=== PATIENT | female | born 1990 | race American Indian/Alaskan Native ===

== ENCOUNTER 2016-12-06 12:11 | Emergency (ER) | payer MEDICAID, OTHER ==
[2016-12-06 12:32] VITALS: TEMP 98.7
[2016-12-06 12:35] VITALS: BP 118/82; PULSE 98; RESP 18; O2SAT 100
--- NOTE | 2016-12-06 12:52 | C.PDOC ---
History Of Present Illness 26 y/o female presents to the ED c/o ring worm on the right arm and abdominal region. The patient states that the area is very itchy. The patient notes that her daughter has ring worm as well. The patient denies dizziness, headaches, vomiting, fever, and chills. Time Seen by Provider: 12/06/16 12:38 Chief Complaint (Nursing): Abnormal Skin Integrity History Per: Patient History/Exam Limitations: no limitations Onset/Duration Of Symptoms: Days Current Symptoms Are (Timing): Still Present Additional History Per: Patient Past Medical History Reviewed: Historical Data, Nursing Documentation, Vital Signs Vital Signs: Last Vital Signs Temp 98.7 F 12/06/16 12:32 Pulse 98 H 12/06/16 12:32 Resp 18 12/06/16 12:32 BP 118/82 12/06/16 12:32 Pulse Ox 100 12/06/16 14:43 - Medical History PMH: No Chronic Diseases Surgical History: No Surg Hx Family History: States: Unknown Family Hx - Social History Hx Alcohol Use: Yes Hx Substance Use: No - Immunization History Hx Tetanus Toxoid Vaccination: No Hx Influenza Vaccination: No Hx Pneumococcal Vaccination: No Review Of Systems Except As Marked, All Systems Reviewed And Found Negative. Constitutional: Negative for: Fever, Chills Gastrointestinal: Positive for: Other (lesions on the abdominal region ). Negative for: Nausea, Vomiting Skin: Positive for: Lesions (small on the right arm ). Negative for: Rash, Bruising Physical Exam - Physical Exam Appears: Non-toxic, No Acute Distress Skin: Normal Color, Warm, Rash, Other (lesions on the right arm and abdominal region , appears to be very scaly .) Head: Atraumatic Oral Mucosa: Moist Extremity: Normal ROM Neurological/Psych: Oriented x3, Normal Speech, Normal Cognition ED Course And Treatment O2 Sat by Pulse Oximetry: 100 (RA) Progress Note: The patient has improved and has been resting comfortably. Upon reevaluation, the patient is not aferbile. The patient has been advised to have a follow up with PMD for further evaluation. Disposition - Disposition Referrals: [facility] [Outside] [facility] [Outside] Disposition: HOME/ ROUTINE Disposition Time: 12:51 Condition: STABLE Additional Instructions: Follow up with your doctor or in clinic. Call the [facility] if you need to find a doctor. Prescriptions: Butenafine HCl [Lotrimin Ultra] 1 gm TP TID #12 gm Instructions: Tinea Corporis (ED) Forms: [facility] (Sinhala) - Clinical Impression Clinical Impression: Tinea corporis - Scribe Statement The provider has reviewed the documentation as recorded by the Scribe Nirali Lux All medical record entries made by the Eliuibe were at my direction and personally dictated by me. I have reviewed the chart and agree that the record accurately reflects my personal performance of the history, physical exam, medical decision making, and the department course for this patient. I have also personally directed, reviewed, and agree with the discharge instructions and disposition.
== END 2016-12-06 13:07 | disposition home or self-care (01) ==
LOC: C.ER 12:11
DX: B35.4 Tinea corporis (principal)

== ENCOUNTER 2016-12-09 09:57 | Inpatient (IN) | payer MEDICAID, OTHER ==
--- NOTE | 2016-12-09 11:04 | C.PDOC ---
History Of Present Illness 26 year old female, whose past medical history includes Asthma, presents to the ED for psychiatric evaluation after she verbalized suicidal ideation. Patient states she has been feeling depressed and admits to experiencing auditory hallucinations. Pt notes " I just want to get better." No HI. Time Seen by Provider: 12/09/16 10:33 Chief Complaint (Nursing): Psychiatric Evaluation History Per: Patient History/Exam Limitations: no limitations Onset/Duration Of Symptoms: Hrs Current Symptoms Are (Timing): Still Present Suicide/Self Injury Attempted (Context): None Associated Symptoms: Depression, Suicidal Thoughts. denies: Suicidal Plan Involuntary Hold By: None Recent travel outside of the [place]: No Additional History Per: Patient Past Medical History Reviewed: Historical Data, Nursing Documentation, Vital Signs Vital Signs: Last Vital Signs Temp 97.0 F L 12/09/16 13:10 Pulse 107 H 12/09/16 13:10 Resp 16 12/09/16 13:47 BP 141/90 12/09/16 13:10 Pulse Ox 97 12/09/16 13:10 - Medical History PMH: Bipolar Disorder Surgical History: No Surg Hx Family History: States: Unknown Family Hx - Social History Hx Alcohol Use: Yes Hx Substance Use: Yes - Immunization History Hx Tetanus Toxoid Vaccination: No Hx Influenza Vaccination: No Hx Pneumococcal Vaccination: No Review Of Systems Psych: Positive for: Depression, Suicidal ideation. Negative for: Other ( homicidal ideation ) Physical Exam - Physical Exam Appears: Non-toxic, No Acute Distress Skin: Normal Color, Warm, Dry Head: Atraumatic, Normacephalic Eye(s): bilateral: Normal Inspection, EOMI Nose: Normal Oral Mucosa: Moist Neck: Normal ROM, Supple Chest: Symmetrical, No Deformity, No Tenderness Cardiovascular: Rhythm Regular Respiratory: Normal Breath Sounds, No Rales, No Rhonchi, No Wheezing Gastrointestinal/Abdominal: Normal Exam, Soft, No Tenderness Extremity: Normal ROM, Capillary Refill (less than 2 seconds ) Neurological/Psych: Oriented x3, No Normal Speech (delayed ), Normal Cognition Gait: Steady ED Course And Treatment - Laboratory Results Result Diagrams: 12/09/16 11:51 12/09/16 11:51 O2 Sat by Pulse Oximetry: 98 (on RA) Pulse Ox Interpretation: Normal Progress Note: Bloodwork and urinalysis ordered and reviewed. Patient underwent evaluation by toll test worker. Patient will be admitted to Dr. Mckeon under diagnosis of Bipolar Disorder and Schizophrenia. Disposition - Disposition Disposition: HOSPITALIZED Disposition Time: 13:00 Condition: STABLE - Clinical Impression Clinical Impression: Depression, Bipolar disorder - PA / REAL PROPERTY APPRAISER / Resident Statement MD/DO has reviewed & agrees with the documentation as recorded. - Scribe Statement The provider has reviewed the documentation as recorded by the Scribe (Berenice Thompson) All medical record entries made by the Scribe were at my direction and personally dictated by me. I have reviewed the chart and agree that the record accurately reflects my personal performance of the history, physical exam, medical decision making, and the department course for this patient. I have also personally directed, reviewed, and agree with the discharge instructions and disposition.
[2016-12-09 11:55] LABS: BASO # 0.1 K/uL (0.0-0.2); BASO % 0.9 % (0.0-2.0); EOS # 0.1 K/uL (0.0-0.7); HEMATOCRIT 42.2 % (34.0-47.0); LYMPH # 1.6 K/uL (1.0-4.3); LYMPH % 21.9 % (20.0-40.0); MEAN CELL VOLUME 86.9 fL (81.0-99.0); MEAN CORPUSCULAR HEMOGLOBIN 30.5 pg (27.0-31.0); MEAN PLATELET VOLUME 9.4 fL (7.2-11.7); MONO # 0.4 K/uL (0.0-0.8); MONO % 5.7 % (0.0-10.0); NRBC % 0.5 % (0.0-2.0); RED CELL DISTRIBUTION WIDTH 12.2 % (11.5-14.5); WHITE BLOOD COUNT 7.3 K/uL (4.8-10.8)
[2016-12-09 12:07] LABS: CHLORIDE 102 mmol/L (98-107); POTASSIUM 4.1 mmol/L (3.6-5.2); RBC URINE 7 /hpf (0-3); SODIUM 138 mmol/L (132-148); URINE BACTERIA OCC (<OCC); URINE BILIRUBIN NEGATIVE (NEGATIVE); URINE BLOOD 1+ (NEGATIVE); URINE COLOR Yellow (YELLOW); URINE GLUCOSE (UA) NORMAL (Normal); URINE KETONE 1+ mg/dL (NEGATIVE); URINE LEUKOCYTE ESTERASE NEG Leu/uL (Negative); URINE PROTEIN 2+ mg/dL (NEGATIVE); URINE UROBILINOGEN NORMAL mg/dL (0.2-1.0); WBC URINE 4 /hpf (0-5)
[2016-12-09 12:09] LABS: GFR AFRICAN-AMERICAN > 60
[2016-12-09 12:10] LABS: ALB/GLOB RATIO 1.3 (1.0-2.1); ALKALINE PHOSPHATASE 90 U/L (38-126); ALT/SGPT 29 U/L (9-52); AST/SGOT 26 U/L (14-36); BILIRUBIN,TOTAL 0.8 mg/dL (0.2-1.3); BLOOD UREA NITROGEN 13 mg/dL (7-17); CALCIUM 10.2 mg/dl (8.6-10.4); CARBON DIOXIDE 21 mmol/L (22-30); GLUCOSE,RANDOM 96 mg/dL (65-105); TOTAL PROTEIN 8.8 g/dL (6.3-8.3)
[2016-12-09 12:11] LABS: ALCOHOL SERUM < 10 mg/dl (0-10)
--- NOTE | 2016-12-09 13:40 | PCM.BM ---
<Mary Jane Gaviria - Last Filed: 12/09/16 13:38> Treatment Plan Problems - Problems identified on initial assessmt Depression Date Initiated: 12/09/16 Time Initiated: 13:38 Assessment reference: NA Status: Active Auditory Hallucination Date Initiated: 12/09/16 Time Initiated: 13:39 Assessment reference: NA Status: Active Treatment assets and liabiliti Patient Assests: adapts well, cooperative, ADL independent, physically healthy, negotiates basic needs, cognitively intact Patient Liabilities: live alone (lives with mother), financial problems, poor support system, substance abuse (THC) - Milieu Protocol Maintain good personal hygiene: daily Encourage regular showers, daily Remind patient to perform daily oral care, other Assist patient to perform ADL's (Self) Conduct patient checks and document Observation sheet: Q15 minutes (Safety) Maintain personal safety: every shift Educate patient to report safety concerns to staff, every shift Monitor environment for contraband/sharps Medication safety: Monitor for expected outcome, potential side effects: every shift, Assess barriers to learning: every shift, Assess readiness for medication education: every shift <Mary Lundberg - Last Filed: 12/10/16 11:48> Family Contact Family involvement: Family/SO is involved Family contact: Patient agrees to contact Family contact name: Stacey Vega-mother Family contacted how many times per week?: 1 - Goals for Treatment Patient goals for treatment: "I need help with my medical program." Discharge/Continuing Care - Education Needs Education Needs: Patient Medication, Patient Coping Skills - Discharge Discharge Criteria: Tolerates medication w/o severe side effects, Reduction of target symptoms Discharge to:: Home, With Family - Treatment Team Participation Discussed with Family/SO: Yes Was Patient/Family/SO present at Treatment Team Meeting: Yes <Ryan Mckeon - Last Filed: 12/10/16 11:55> - Diagnosis (1) Bipolar I disorder, single manic episode, severe with psychotic features Status: Acute Interventions: Assess/adjust medications daily and/or as needed SEE patient on him individual basis 7x/week to assess status of hallucinations. Discuss risks, benefits, side effects and alternatives of medications. 12/10/16 11:55 (2) Cannabis use disorder, severe, dependence Status: Acute Interventions: Assess 7x/week regarding severity of withdrawal Educated regarding risks, benefits, side effects and alternatives of medications Used motivational interview for abstinence Used CBT for relapse prevention Medication management for withdrawal symptoms Encouraged medication assisted treatment 12/10/16 11:54
[2016-12-10] MEDS ORDERED: DiphenhydrAMINE 50 mg/ml Inj ONE (12:06)
[2016-12-10] MEDS ORDERED: DiphenhydrAMINE 50 mg/ml Inj IM STA (12:09)
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
--- NOTE | 2016-12-11 14:45 | PCM.PYCHPN ---
Psychiatric Progress Note - Psychiatric Progress Note Patient seen today, length of contact: 15 minutes Patient Chief Complaint: I feel little better. Problems Identified/Issues Discussed: Patient seen. Chart reviewed. Case discussed with the staff. Issues related to illness and treatment were discussed with the patient. Reported compliant with treatment with no adverse affects. Tolerating treatment very well. Feeling little better with the treatment. Mood was still labile. At the time of evaluation, patient was awake alert oriented 3, had no delusions , no auditory or visual hallucinations, no suicidal ideations or homicidal ideations. Medical Problems: Asthma Diagnostic Results: Reviewed DSM 5 Symptoms Update: Improving with treatment Medication Change: No Medical Record Reviewed: Yes Mental Status Examination - Cognitive Function Orientation: Person, Place, Situation, Time Memory: Intact Attention: WNL Concentration: WNL Association: WNL Fund of Knowledge: WNL - Mood Mood: Depressed, Other (Angry) - Affect Affect: Flat - Speech Speech: Pressured (At times) - Formal Thought Process Formal Thought Process: Delusions (Somatic delusions), Paranoia - Suicidal Ideation Suicidal Ideation: No - Homicidal Ideation Homicidal Ideation: No Goal/Treatment Plan - Goal/Treatment Plan Need for Continued Stay: Remain at risks for inpatient hospitalization, Discharge may exacerbated symptoms, Severe functional impairment Progress Toward Problem(s) and Goals/Treatment Plan: Patient education Supportive therapy Continue treatment as before Estimated Date of D/C: 12/16/16 - Smoking Cessation Smoking Cessation Initiated: No
[2016-12-12] MEDS ORDERED: Pneumococcal 23-Valent Vaccine IM ONE (10:00)
[2016-12-12] MEDS ORDERED: Influenza Vaccine 60 mcg/0.5 mL SYR (4YR UP) IM ONE (10:00)
--- NOTE | 2016-12-12 12:41 | PCM.PYCHPN ---
Psychiatric Progress Note - Psychiatric Progress Note Patient seen today, length of contact: 15 minutes Patient Chief Complaint: I feel little better. Problems Identified/Issues Discussed: Patient seen. Chart reviewed. Case discussed with the staff. Issues related to illness and treatment were discussed with the patient. Reported compliant with treatment with no adverse affects. Tolerating treatment very well. Feeling little better with the treatment. Mood was still labile. Will start ciprofloxacin for UTI. At the time of evaluation, patient was awake alert oriented 3, had no delusions , no auditory or visual hallucinations, no suicidal ideations or homicidal ideations. Medical Problems: Asthma Diagnostic Results: Reviewed DSM 5 Symptoms Update: improving with treatment Medication Change: Yes (started ciprofloxacin) Medical Record Reviewed: Yes Mental Status Examination - Cognitive Function Orientation: Person, Place, Situation, Time Memory: Intact Attention: WNL Concentration: WNL Association: WNL Fund of Knowledge: WN Decription of patient's judgement and insights: fair - Mood Mood: Depressed, Other (Angry) - Affect Affect: Flat - Speech Speech: Appropriate - Suicidal Ideation Suicidal Ideation: No - Homicidal Ideation Homicidal Ideation: No Goal/Treatment Plan - Goal/Treatment Plan Need for Continued Stay: Remain at risks for inpatient hospitalization, Discharge may exacerbated symptoms, Severe functional impairment Progress Toward Problem(s) and Goals/Treatment Plan: Patient education Supportive therapy Will start ciprofloxacin 500 mg twice a day for UTI Continue rest of the treatment as before Estimated Date of D/C: 12/16/16 - Smoking Cessation Smoking Cessation Initiated: No
--- NOTE | 2016-12-13 12:27 | PCM.PYCHPN ---
Psychiatric Progress Note - Psychiatric Progress Note Patient seen today, length of contact: 15 minutes Patient Chief Complaint: I feel little better. Problems Identified/Issues Discussed: Patient seen. Chart reviewed. Case discussed with the staff. Issues related to illness and treatment were discussed with the patient. Reported compliant with treatment with no adverse affects. Tolerating treatment very well. Feeling better with the treatment. Mood was still labile. Staff reported that patient's parents were on the unit yesterday. After their visit, patient became very angry, need to call security. Patient got IM Haldol and Ativan to calm her down. Today patient reported that she made a mistake that now she is calm and try not to be impulsive. At the time of evaluation, patient was awake alert oriented 3, had no delusions , no auditory or visual hallucinations, no suicidal ideations or homicidal ideations. Medical Problems: Asthma Diagnostic Results: Reviewed DSM 5 Symptoms Update: Improving with treatment Medication Change: No Medical Record Reviewed: Yes Mental Status Examination - Cognitive Function Orientation: Person, Place, Situation, Time Memory: Intact Attention: WNL Concentration: WNL Association: WNL Fund of Knowledge: [facility] Decription of patient's judgement and insights: fair - Mood Mood: Depressed - Affect Affect: Flat - Speech Speech: Appropriate - Formal Thought Process Formal Thought Process: No Impairment - Suicidal Ideation Suicidal Ideation: No - Homicidal Ideation Homicidal Ideation: No Goal/Treatment Plan - Goal/Treatment Plan Need for Continued Stay: Remain at risks for inpatient hospitalization, Discharge may exacerbated symptoms, Severe functional impairment Progress Toward Problem(s) and Goals/Treatment Plan: Patient education Supportive therapy Continue treatment as before Estimated Date of D/C: 12/16/16 - Smoking Cessation Smoking Cessation Initiated: No
--- NOTE | 2016-12-14 13:39 | PCM.PYCHPN ---
Psychiatric Progress Note - Psychiatric Progress Note Patient seen today, length of contact: 15 minutes Patient Chief Complaint: I'm feeling better. Problems Identified/Issues Discussed: Patient seen. Chart reviewed. Case discussed with the staff. Issues related to illness and treatment were discussed with the patient. Reported compliant with treatment with no adverse affects. Tolerating treatment very well. Feeling better with the treatment. Mood was still labile. Staff reported that patient refuses to take Risperdal last night. Discussed with the patient about Risperdal. Patient doesn't want to take Risperdal. Offered Seroquel. Risk and benefits of Seroquel discussed with the patient. Patient agreed. We'll start Risperdal 100 mg at bedtime. At the time of evaluation, patient was awake alert oriented 3, had no delusions , no auditory or visual hallucinations, no suicidal ideations or homicidal ideations. Medical Problems: Asthma Diagnostic Results: Reviewed DSM 5 Symptoms Update: Some improvement with treatment Medication Change: Yes (Discontinued took Risperdal. Start Seroquel) Medical Record Reviewed: Yes Mental Status Examination - Cognitive Function Orientation: Person, Place, Situation, Time Memory: Intact Attention: WNL Concentration: WNL Association: [facility] Fund of Knowledge: [facility] Decription of patient's judgement and insights: fair - Mood Mood: Depressed - Affect Affect: Flat - Speech Speech: Appropriate - Formal Thought Process Formal Thought Process: No Impairment - Suicidal Ideation Suicidal Ideation: No - Homicidal Ideation Homicidal Ideation: No Goal/Treatment Plan - Goal/Treatment Plan Need for Continued Stay: Remain at risks for inpatient hospitalization, Discharge may exacerbated symptoms, Severe functional impairment Progress Toward Problem(s) and Goals/Treatment Plan: Patient education Supportive therapy Discontinue Risperdal Start Seroquel 100 mg at bedtime Continue rest of the treatment as before Estimated Date of D/C: 12/16/16 - Smoking Cessation Smoking Cessation Initiated: No
[2016-12-14] MEDS ORDERED: Albuterol HFA 90 mcg/actuation (8 g) INH PRN (19:48)
[2016-12-15 07:23] VITALS: TEMP 98.7; O2SAT 99
--- NOTE | 2016-12-15 10:06 | PCM.PYCHPN ---
Psychiatric Progress Note - Psychiatric Progress Note Patient seen today, length of contact: 17 mins Patient Chief Complaint: "I really need to talk to you" Problems Identified/Issues Discussed: The pt is seen, chart reviewed, case discussed with staff. Pt reports that after taking her Haldol earlier that morning she feels okay and has no complaints with the medications. Pt reports that her mood is still down, but that compared to last week she is a little better. She also states that she is worried about going back out into the world because "I won't be able to go back out and function, I need more time". Pt became teary when speaking about her daughter. Pt also reports that "others need to stop talking about my situation", however, when asked about who is doing so she reports "no one its all in my head". Support given, CBT and NE used briefly No new symptoms reported, improving slowly and needs more time No SEs from medications, risks discussed. After care discussed. Pt is encouraged to speak with counselors and SW to find after care programs for her. Pt understands that being complaint with her medications is very important and would like to also speak with a therapist, she is encouraged to do so. Medication Change: Yes (Start Cogentin and Haldol ) Medical Record Reviewed: Yes Mental Status Examination - Cognitive Function Orientation: Person, Place, Situation, Time Memory: Intact Attention: Poor Concentration: WNL Association: WNL Fund of Knowledge: WNL - Mood Mood: Depressed - Affect Affect: Flat, Depressed - Speech Speech: Appropriate - Formal Thought Process Formal Thought Process: No Impairment - Suicidal Ideation Suicidal Ideation: No - Homicidal Ideation Homicidal Ideation: No Goal/Treatment Plan - Goal/Treatment Plan Need for Continued Stay: Remain at risks for inpatient hospitalization, Discharge may exacerbated symptoms, Severe functional impairment Progress Toward Problem(s) and Goals/Treatment Plan: Start: Cogentin 1mg PO BID MICHAEL Haldol 5mg PO BID MICHAEL Continue all other medications as needed. Attend groups and activities Individual therapy Psychoeducation and support Encourage compliance with meds and after care Refer to outpatient program Teach healthy lifestyle methods, i.e. diet, exercise, meditation Smoking cessation 17 mins Estimated Date of D/C: 12/16/16
--- NOTE | 2016-12-16 10:37 | PCM.PYCHPN ---
Psychiatric Progress Note - Psychiatric Progress Note Patient seen today, length of contact: 16 mins Patient Chief Complaint: "I guess I'm okay" Problems Identified/Issues Discussed: The pt is seen, chart reviewed, case discussed with staff. Pt reports she slept well last night, but is a bit agitated this morning. She states " I want to leave" but constantly changes her mind. Her mood seems the same compared to before. Support given, CBT and [place] used briefly No new symptoms reported, improving slowly and needs more time No SEs from medications, risks discussed. After care discussed. Pt reports that she will stay and continue her treatment, stating "I know this is what I need". Pt is encouraged to do so. Medication Change: No Medical Record Reviewed: Yes Mental Status Examination - Cognitive Function Orientation: Person, Place, Situation, Time Memory: Intact Attention: Poor Concentration: Poor Association: WNL Fund of Knowledge: Poor - Mood Mood: Depressed, Anxious - Affect Affect: Flat, Depressed - Speech Speech: Appropriate - Formal Thought Process Formal Thought Process: No Impairment - Suicidal Ideation Suicidal Ideation: No - Homicidal Ideation Homicidal Ideation: No Goal/Treatment Plan - Goal/Treatment Plan Need for Continued Stay: Remain at risks for inpatient hospitalization, Discharge may exacerbated symptoms, Severe functional impairment Progress Toward Problem(s) and Goals/Treatment Plan: Continue all other medications as needed. Attend groups and activities Individual therapy Psychoeducation and support Encourage compliance with meds and after care Refer to outpatient program Teach healthy lifestyle methods, i.e. diet, exercise, meditation Smoking cessation Estimated Date of D/C: 12/16/16
[2016-12-17 07:19] VITALS: BP 102/68; PULSE 101; RESP 19
[2016-12-17] MEDS ORDERED: Haloperidol Decanoate 100 mg/ml Inj IM ONE (09:51)
--- NOTE | 2016-12-17 10:35 | PCM.PYCHDC ---
Mental Status Examination - Mental Status Examination Orientation: Person, Place, Situation, Time Memory: Intact Mood: Neutral Affect: Constricted Speech: Soft Attention: WNL Concentration: WNL Association: WNL Fund of Knowledge: WNL Formal Thought Process: No Impairment Description of patient's judgement and insight: good, fair Psychotic Thoughts and Behaviors: denies any AVH Suicidal Ideation: No Current Homicidal Ideation?: No Discharge Summary - Discharge Note Reason for Hospitalization: Patient is a 26 years old, single, unemployed, -Indian female with history of bipolar 1 disorder with psychotic features. Reported noncompliant with treatment since May 2016. Was taking Risperdal and lithium. Patient reported she was getting these medications from [place] where she was living and recently moved back to [place]. Patient reported feeling depressed with decreased sleep and feeling rested, increased energy, no change in appetite or weight change. Reported suicidal ideations at times without any plan. No homicidal ideations. History of one previous suicidal attempt in the early part of 2016 while she was admitted to the hospital. Patient refused to provide details. History of 3 previous inpatient psychiatric admissions. Patient reported history of seeing things which were not there. Also thinks someone is after her. Patient reported she was studying more and was not taking care of for 3 years old daughter. His family is taking care of her daughter. During evaluation patient appeared suspicious for many questions. Patient reported she didn't menstruate for last 3 years because of implant she had. Recently she started spotting. Patient demanded to be seen by medical and ANESTHESIOLOGIST/PHYSICIAN right on the spot. Education provided that will call medical. Patient became very agitated and aggressive. Needed to call security and IM medications including Haldol, Ativan and Benadryl. Also patient was in seclusion. Cannabis use. Patient started using cannabis at 19 years of age, one plan daily. Increased gradually. Was guarded about amount used now. Last use reported 2 days ago. Also drinks alcohol 2 times per week. One glass of wine each time. Last use reported 5 days ago. Consultations:: List each consultation separately and include: 1. Reason for request. 2. Findings. 3. Follow-up Summary of Hospital Course include:: 1. Description of specific treatment plan utilized for patients during their course of treatmen. 2. Summarize the time- course for resolution of acute symptoms and/or regressed behaviors. 3. Describe issues identified and worked on during hospitalization. 4. Describe medication utilized. 5. Describe medical problems identified and treated. 6. Reassessment of suicide risk - Final Diagnosis (DSM 5) Condition upon Discharge: STABLE DSM 5: Bipolar 1 disorder depressed with psychotic features Cannabis use disorder severe Disposition: HOME/ ROUTINE Follow-up Treatment Plan: Continue all other medications as needed. Attend groups and activities Individual therapy Psychoeducation and support Encourage compliance with meds and after care Refer to outpatient program Teach healthy lifestyle methods, i.e. diet, exercise, meditation Smoking cessation Prescriptions/Medication Reconciliation: Benztropine [Cogentin] 1 mg PO BID #60 tab Haloperidol [Haldol] 5 mg PO BID #60 tab [place] Carbonate [[place] Carbonate 300MG] 300 mg PO TID #90 cap QUEtiapine [Seroquel] 100 mg PO HS #30 tab
== END 2016-12-17 11:25 | disposition home or self-care (01) | DRG 430 ==
LOC: C.ER 09:57 → C.5E 12:37
PROC: GZ3ZZZZ Medication Management (ICD-10-PCS; principal; 2016-12-09)
PROC: GZHZZZZ Group Psychotherapy (ICD-10-PCS; 2016-12-09)
PROC: GZ56ZZZ Individual Psychotherapy, Supportive (ICD-10-PCS; 2016-12-09)
PROC: HZ59ZZZ Individual Psychotherapy for Substance Abuse Treatment, Supportive (ICD-10-PCS; 2016-12-09)
DX: F31.5 Bipolar disorder, current episode depressed, severe, with psychotic features (principal); R45.851 Suicidal ideations; F12.20 Cannabis dependence, uncomplicated; N39.0 Urinary tract infection, site not specified; J45.909 Unspecified asthma, uncomplicated; Z91.19 Patient's noncompliance with other medical treatment and regimen; Z81.8 Family history of other mental and behavioral disorders; Z91.410 Personal history of adult physical and sexual abuse

== ENCOUNTER 2017-02-02 17:32 | Inpatient (IN) | payer MEDICAID ==
[2017-02-02] MEDS ORDERED: Lactated Ringer's 1,000 ML IVB ONE (18:02)
[2017-02-02 18:46] LABS: BASO # 0.1 K/uL (0.0-0.2); BASO % 0.6 % (0.0-2.0); EOS # 0.4 K/uL (0.0-0.7); EOS % 3.7 % (0.0-4.0); HEMATOCRIT 36.6 % (34.0-47.0); LYMPH # 1.6 K/uL (1.0-4.3); LYMPH % 15.7 % (20.0-40.0); MEAN CELL VOLUME 87.6 fL (81.0-99.0); MEAN CORPUSCULAR HEMOGLOBIN 29.3 pg (27.0-31.0); MEAN CORPUSCULAR HGB CONC 33.4 g/dL (33.0-37.0); MEAN PLATELET VOLUME 8.9 fL (7.2-11.7); MONO # 0.8 K/uL (0.0-0.8); MONO % 7.4 % (0.0-10.0); RED CELL DISTRIBUTION WIDTH 12.6 % (11.5-14.5); WHITE BLOOD COUNT 10.4 K/uL (4.8-10.8)
[2017-02-02 18:48] LABS: ALB/GLOB RATIO 1.5 (1.0-2.1); ALCOHOL SERUM < 10 mg/dl (0-10); ALKALINE PHOSPHATASE 71 U/L (38-126); ALT/SGPT 29 U/L (9-52); AST/SGOT 17 U/L (14-36); BILIRUBIN,TOTAL 0.5 mg/dL (0.2-1.3); BLOOD UREA NITROGEN 8 mg/dL (7-17); CALCIUM 8.9 mg/dl (8.6-10.4); CARBON DIOXIDE 27 mmol/L (22-30); CHLORIDE 106 mmol/L (98-107); GFR AFRICAN-AMERICAN > 60; GLUCOSE,RANDOM 99 mg/dL (65-105); POTASSIUM 3.6 mmol/L (3.6-5.2); SODIUM 140 mmol/L (132-148); TOTAL PROTEIN 6.7 g/dL (6.3-8.3)
[2017-02-02 19:05] LABS: RBC URINE 1 /hpf (0-3); URINE BACTERIA OCC (<OCC); URINE BILIRUBIN NEGATIVE (NEGATIVE); URINE BLOOD NEGATIVE (NEGATIVE); URINE COLOR Yellow (YELLOW); URINE GLUCOSE (UA) NORMAL (Normal); URINE KETONE NEGATIVE (NEGATIVE); URINE LEUKOCYTE ESTERASE TRACE Leu/uL (Negative); URINE PROTEIN 2+ mg/dL (NEGATIVE); URINE UROBILINOGEN NORMAL mg/dL (0.2-1.0); WBC URINE 5 /hpf (0-5)
[2017-02-02 19:06] LABS: FREE T4 1.1 ng/dL (0.78-2.19)
[2017-02-02 19:18] LABS: THYROID STIMULATING HORMONE 2.19 mIU/L (0.46-4.68)
--- NOTE | 2017-02-02 19:39 | C.PDOC ---
History Of Present Illness Pt c/o feeling tremulous. Time Seen by Provider: 02/02/17 17:43 Chief Complaint (Nursing): Medical Clearance History Per: Patient, Family Onset/Duration Of Symptoms: Days (about 1 month) Current Symptoms Are (Timing): Still Present Severity: Moderate Additional History Per: Prior Records Past Medical History Reviewed: Historical Data, Nursing Documentation, Vital Signs Vital Signs: Last Vital Signs Temp 98 F 02/02/17 19:59 Pulse 100 H 02/02/17 19:59 Resp 16 02/02/17 19:59 BP 130/80 02/02/17 19:59 Pulse Ox 100 02/02/17 19:59 - Medical History PMH: Asthma, Bipolar Disorder, Depression - [facility] Procedures GROUP PSYCHOTHERAPY (12/09/16) INDIV PSYCHOTHERAPY FOR SUBSTANCE ABUSE TREATMENT, SUPPORT (12/09/16) INDIVIDUAL PSYCHOTHERAPY, SUPPORTIVE (12/09/16) MEDICATION MANAGEMENT (12/09/16) Family History: States: Unknown Family Hx - Social History Hx Alcohol Use: Yes Hx Substance Use: No - Immunization History Hx Tetanus Toxoid Vaccination: No Hx Influenza Vaccination: No Hx Pneumococcal Vaccination: No Review Of Systems Except As Marked, All Systems Reviewed And Found Negative. Constitutional: Negative for: Fever Cardiovascular: Negative for: Chest Pain Respiratory: Negative for: Shortness of Breath Gastrointestinal: Negative for: Vomiting, Abdominal Pain Musculoskeletal: Negative for: Neck Pain Skin: Negative for: Rash Neurological: Negative for: Weakness, Numbness, Seizures Psych: Positive for: Anxiety. Negative for: Suicidal ideation Physical Exam - Physical Exam Appears: Non-toxic, No Acute Distress Skin: Normal Color, Warm, Dry, No Rash Head: Atraumatic, Normacephalic Eye(s): bilateral: PERRL, EOMI Neck: Normal ROM, Supple Cardiovascular: Rhythm Regular Respiratory: Normal Breath Sounds, No Accessory Muscle Use Gastrointestinal/Abdominal: Soft, No Tenderness Back: No CVA Tenderness Extremity: Normal ROM, No Pedal Edema Neurological/Psych: Oriented x3, Normal Motor, Normal Sensation, Other (Pt is mildly tremulous) ED Course And Treatment - Laboratory Results Result Diagrams: 02/02/17 18:32 02/02/17 18:32 Lab Interpretation: No Acute Changes Urine POC: Negative ECG: Interpreted By Me, Viewed By Me ECG Rhythm: Sinus Rhythm ECG Interpretation: No Acute Changes Rate From EC Progress Note: Pt is medically stable for psychiatric admission. Medical Decision Making Medical Decision Making: Pt will be admitted to psych for adjustment of medications. Disposition Counseled Patient/Family Regarding: Studies Performed, Diagnosis - Disposition Disposition: HOSPITALIZED Disposition Time: 20:27 Condition: STABLE - Clinical Impression Clinical Impression: Bipolar disorder Decision To Admit - Pt Status Changed To: Hospital Disposition Of: Inpatient - Admit Certification Admit to Inpatient:: After my assessment, the patient will require hospitalization for at least two midnights. This is because of the severity of symptoms shown, intensity of services needed, and/or the medical risk in this patient being treated as an outpatient. - InPatient: Physician Admission Certification: I certify that this patient requires 2 or more midnights of care for the following reason:: Psych. - . Bed Request Type: Psychiatry Admitting Physician: Shikha Tran Patient Diagnosis: Bipolar disorder
[2017-02-02 20:00] VITALS: O2SAT 100
--- NOTE | 2017-02-02 21:29 | PCM.BM ---
<Moi Jose - Last Filed: 02/02/17 21:26> Treatment Plan Problems - Problems identified on initial assessmt Depression Date Initiated: 02/02/17 Time Initiated: 21:00 Assessment reference: NA Status: Active Treatment assets and liabiliti Patient Assests: adapts well, cooperative, ADL independent, physically healthy, negotiates basic needs, cognitively intact Patient Liabilities: medical problems (Asthma, Respiratory disorder) - Milieu Protocol Maintain good personal hygiene: daily Encourage regular showers, daily Remind patient to perform daily oral care, every shift Assist patient to perform ADL's (self) Conduct patient checks and document Observation sheet: Q15 minutes (For Safety) Maintain personal safety: every shift Educate patient to report safety concerns to staff, every shift Monitor environment for contraband/sharps Medication safety: Monitor for expected outcome, potential side effects: every shift, Assess barriers to learning: every shift, Assess readiness for medication education: every shift <Mary Lundberg - Last Filed: 02/05/17 10:33> Family Contact Family involvement: Family/SO is involved Family contact: Patient declines to allow family contact at present Discharge/Continuing Care - Education Needs Education Needs: Patient Medication, Patient Coping Skills - Discharge Discharge Criteria: Tolerates medication w/o severe side effects, Reduction of target symptoms Discharge to:: Home - Treatment Team Participation Discussed with Family/SO: No Was Patient/Family/SO present at Treatment Team Meeting: Yes <Fercho Tang - Last Filed: 02/06/17 10:10> - Diagnosis (1) Bipolar I disorder, single manic episode, severe with psychotic features Status: Acute Interventions: 02/06/17 10:09 * Assess/adjust medications daily and /or as needed * See patient on an individual basis 7x/week to assess level of manic behaviors and stability * Discuss risks, benefits, side effects and alternatives of medications * (2) Alcohol use disorder, moderate, dependence Status: Acute Interventions: 02/06/17 10:09 * Assess 7x/week regarding severity of withdrawal * Educate regarding risks, benefits, side effects and alternatives of medications * Use Motivational Interviewing for abstinence * Use CBT for relapse prevention * Medication management for withdrawal symptoms * Encourage medication assisted treatment * (3) Cannabis use disorder, severe, dependence Status: Acute Interventions: 02/06/17 10:09 * Assess 7x/week regarding severity of withdrawal * Educate regarding risks, benefits, side effects and alternatives of medications * Use Motivational Interviewing for abstinence * Use CBT for relapse prevention * Medication management for withdrawal symptoms * Encourage medication assisted treatment *
--- NOTE | 2017-02-03 11:48 | PCM.PSYCH ---
Initial Psychiatric Evaluation - Initial Psychiatric Evaluation Type of Admission: Voluntary Legal Status: Capacity Chief Complaint (in patient's own words): "I feel fine except for the tremors" History of Present Illness and Precipitating Events: The pt is seen, chart reviewed, case discussed with staff PT is a 26y/o female with a history of Asthma, Bipolar, and Depression was admitted to the ED for tremors yesterday. She lives in an apartment with her mother, 3y/o daughter, and cousin. She is currently unemployed and her mother supports her. She reports drinking 1-2 glasses of wine occasionally. Pt reports that she smokes 5 cigarettes day for the past month. She denies marijuana, opioid, cocaine use. Pt appears to have a flat affect and soft speech. Pt reports that she slept fine. Pt reported that her appetite is fine and she had breakfast this morning. Other than the tremors that pt reports feelings of anxiety. Pt denies Suicidal ideations, Homicidal ideations, auditotry hallucinations, visual hallucinations, and feelings of depression. Past MHX: Asthma Past Psychiatric HX: Bipolar, Depression Past Family Psychiatric HX: denies Past Family Substance Abuse: denies The pt is compliant with medications and reports no side-effects. Symptoms are improving but needs more time to stabilize. After care discussed, support and psychoeducation given. Current Medications: Active Medications Generic Name Dose Route Start Last Admin Trade Name Freq PRN Reason Stop Dose Admin Diphenhydramine HCl 50 mg 02/02/17 21:45 02/02/17 22:24 Benadryl PO 50 mg Q6H PRN Administration Anxiety Pneumococcal Polyvalent Vaccine 0.5 ml 02/05/17 10:00 Pneumovax 23 Vaccine IM 02/05/17 10:01 .ONCE ONE Quetiapine Fumarate 100 mg 02/03/17 22:00 Seroquel PO HS [facility] Past Psychiatric History - Past Psychiatric History Pertinent Medical Hx (Current Medical&Sleep Prob, Allergies): Allergies Allergy/AdvReac Type Severity Reaction Status Date / Time crab Allergy Severe SWELLING Verified 12/06/16 12:33 shrimp Allergy Severe SWELLING Verified 12/06/16 12:33 Benztropine [Cogentin] 1 mg PO BID #60 tab 12/17/16 Haloperidol [Haldol] 5 mg PO BID #60 tab 12/17/16 QUEtiapine [Seroquel] 100 mg PO HS #30 tab 12/17/16 [place] Carbonate [[place] Carbonate 300MG] 900 mg PO TID 02/02/17 Review of Systems - Neurological Neurological: Tremor - Psychiatric Psychiatric: Anxiety Mental Status Examination - Personal Presentation Personal Presentation: Looks stated age - Affect Affect: Flat - Motor Activity Motor Activity: Calm - Reliability in Providing Information Reliability in Providing Information: Good - Speech Speech: Organized - Mood Mood: Depressed, Anxious - Formal Thought Process Formal Thought Process: No Impairment - Obsessions/Compulsions Obsessions: No Compulsions: No - Cognitive Functions Orientation: Person, Place, Situation, Time Sensorium: Alert Attention/Concentration: Attentive Abstract Thinking: [place] Estimate of Intelligence: Below average Judgement: Intact, as evidence by: Good judgement, Intact, as evidence by: Insight regarding need for hospitalization Memory: Recent intact, as evidence by: Ability to recall events of the day, Remote intact, as evidenced by: Ability to recall historical events - Risk Risk: Suicidal, Falls, Diminished functioning - Strength & Assets Inventory Strength & Assets Inventory: Family support - Limitations Limitations: Living alone DSM 5 DX - DSM 5 DSM 5 Diagnosis: Bipolar 1 disorder depressed with psychotic features Alcohol use disorder moderate Cannabis use disorder severe - Recommended/Plan of Treatment Treatment Recommendations and Plan of Treatment: Bipolar 1 disorder depressed with psychotic features CBT Psychoeducation Supportive therapy, group therapy, individual therapy Seroquel 100 mg by mouth qHS Depakote 250 mg pO BID Benztropine 1 mg po BID Alcohol use disorder moderate CBT Psychoeducation LIbrium prn Cannabis use disorder severe CBT Psychoeducation - Smoking Cessation Smoking Cessation Initiated: No
[2017-02-03] MEDS: Divalproex 250 mg DR Tab PO SCH (17:25)
--- NOTE | 2017-02-03 21:48 | CARD ---
APPROVED REPORT EKG Measurement Heart [id number] <Conclusion> Normal sinus rhythm Normal ECG
--- NOTE | 2017-02-04 11:23 | PCM.PYCHPN ---
Psychiatric Progress Note - Psychiatric Progress Note Patient Chief Complaint: "I feel fine except for the tremors" Mental Status Examination - Cognitive Function Orientation: Person, Place, Situation, Time - Mood Mood: Depressed, Anxious - Affect Affect: Flat - Formal Thought Process Formal Thought Process: No Impairment - Homicidal Ideation Homicidal Ideation: No Goal/Treatment Plan - Goal/Treatment Plan Progress Toward Problem(s) and Goals/Treatment Plan: Bipolar 1 disorder depressed with psychotic features CBT Psychoeducation Supportive therapy, group therapy, individual therapy Seroquel 100 mg by mouth qHS Depakote 250 mg pO BID Benztropine 1 mg po BID Alcohol use disorder moderate CBT Psychoeducation LIbrium prn Cannabis use disorder severe CBT Psychoeducation
[2017-02-04] MEDS: Divalproex 250 mg DR Tab PO SCH ×2 (11:29→17:38)
--- NOTE | 2017-02-05 09:43 | PCM.PYCHPN ---
Psychiatric Progress Note - Psychiatric Progress Note Patient seen today, length of contact: 17 Patient Chief Complaint: "I'm feeling better" Problems Identified/Issues Discussed: This patient was seen, chart reviewed, and case discussed with staff. Patient reports that her sleep was good and she slept throughout the night. Pt states that her appetite is normal and she had breakfast. She denies experiencing depressed mood and feelings of hopelessness. She denies suicidal ideations and homicidal ideations. She denies any auditory or visual hallucination. Patient appears disheveled and has a soft speech pattern. Pt has a flat affect throughout the interview. She is cooperative. Pt has been participating in groups and has been interacting with the staff and other patients. Patient is compliant with medications and denies any side effects. Symptoms are improving but need more time to stabilize. Support and psychoeducation given. Medical Record Reviewed: Yes Mental Status Examination - Cognitive Function Orientation: Person, Place, Situation, Time Attention: WNL Concentration: WNL Association: Loose Fund of Knowledge: Poor - Mood Mood: Depressed - Affect Affect: Flat - Speech Speech: Soft - Formal Thought Process Formal Thought Process: No Impairment - Suicidal Ideation Suicidal Ideation: No - Homicidal Ideation Homicidal Ideation: No Goal/Treatment Plan - Goal/Treatment Plan Need for Continued Stay: Discharge may exacerbated symptoms, Severe functional impairment Progress Toward Problem(s) and Goals/Treatment Plan: Bipolar 1 disorder depressed with psychotic features CBT Psychoeducation Supportive therapy, group therapy, individual therapy Seroquel 100 mg by mouth qHS Depakote 250 mg pO BID Benztropine 1 mg po BID Alcohol use disorder moderate CBT Psychoeducation LIbrium prn Cannabis use disorder severe CBT Psychoeducation
[2017-02-05] MEDS: Vitamins A & D Oint UD Foilpak TOP SCH (09:51)
[2017-02-05] MEDS: Divalproex 250 mg DR Tab PO SCH ×2 (09:51→17:27)
[2017-02-05] MEDS ORDERED: Pneumococcal 23-Valent Vaccine IM ONE (10:00)
[2017-02-06 06:45] VITALS: BP 111/66; PULSE 88; RESP 19; TEMP 98.2
[2017-02-06] MEDS: Vitamins A & D Oint UD Foilpak TOP SCH (09:54)
[2017-02-06] MEDS: Divalproex 250 mg DR Tab PO SCH (09:56)
[2017-02-06] MEDS ORDERED: Influenza Vaccine 60 mcg/0.5 mL SYR (4YR UP) IM ONE (10:00)
--- NOTE | 2017-02-06 10:01 | PCM.PYCHDC ---
Mental Status Examination - Mental Status Examination Orientation: Person, Place, Situation, Time Memory: Intact Mood: Neutral Affect: Constricted Speech: Soft Attention: WNL Concentration: WNL Association: WNL Fund of Knowledge: WNL Formal Thought Process: No Impairment Description of patient's judgement and insight: good, fair Psychotic Thoughts and Behaviors: denies any AVH Suicidal Ideation: No Current Homicidal Ideation?: No Discharge Summary - Discharge Note Reason for Hospitalization: PT is a 26y/o female with a history of Asthma, Bipolar, and Depression was admitted to the ED for tremors yesterday. She lives in an apartment with her mother, 3y/o daughter, and cousin. She is currently unemployed and her mother supports her. She reports drinking 1-2 glasses of wine occasionally. Pt reports that she smokes 5 cigarettes day for the past month. She denies marijuana, opioid, cocaine use. Pt appears to have a flat affect and soft speech. Pt reports that she slept fine. Pt reported that her appetite is fine and she had breakfast this morning. Other than the tremors that pt reports feelings of anxiety. Pt denies Suicidal ideations, Homicidal ideations, auditotry hallucinations, visual hallucinations, and feelings of depression. Consultations:: List each consultation separately and include: 1. Reason for request. 2. Findings. 3. Follow-up Summary of Hospital Course include:: 1. Description of specific treatment plan utilized for patients during their course of treatmen. 2. Summarize the time- course for resolution of acute symptoms and/or regressed behaviors. 3. Describe issues identified and worked on during hospitalization. 4. Describe medication utilized. 5. Describe medical problems identified and treated. 6. Reassessment of suicide risk Summary of Hospital Course: During the course of her stay, patient (pt) started progressively improving and she no longer remained irritable, anxious and paranoid. Her mood and paranoia were improved and she started attending groups and meetings and started socializing. Patient denied any feelings of hopelessness, helplessness, and worthlessness, denied any problem with the sleep or appetite, denied suicidal ideation or homicidal ideation. Pt denied any auditory or visual hallucinations. Some changes were made in her current medications and patient was discharged on following medications. She tolerated these medications very well and denied any side effects. She was discharged with a plan to follow-up with [facility]. Education: Pt was educated and counseled about the risks and benefits of taking and not taking medications. Pt was educated and counseled about the risks of drinking and abusing drugs. Pt was educated and counseled to go to the ER or call 911 if pt develop suicidal ideation or homicidal ideation, worsening of symptoms or severe side effects of the meds. - Final Diagnosis (DSM 5) Condition upon Discharge: STABLE DSM 5: Bipolar 1 disorder depressed with psychotic features Alcohol use disorder moderate Cannabis use disorder severe Disposition: HOME/ ROUTINE Follow-up Treatment Plan: Education: Pt was educated and counseled about the risks and benefits of taking and not taking medications. Pt was educated and counseled about the risks of drinking and abusing drugs. Pt was educated and counseled to go to the ER or call 911 if pt develop suicidal ideation or homicidal ideation, worsening of symptoms or severe side effects of the meds. Prescriptions/Medication Reconciliation: Benztropine [Cogentin] 1 mg PO HS #30 tab Divalproex [Depakote DR] 250 mg PO BID #60 tcp QUEtiapine [Seroquel] 100 mg PO HS #30 tab - Smoking Cessation Smoking Cessation Medication prescribed: No - Antipsychotic Medications Pt discharged on 2 or more routine antipsychotic medications: No
== END 2017-02-06 11:15 | disposition home or self-care (01) | DRG 430 ==
LOC: C.ER 17:32 → C.5E 20:28
PROVIDERS: ADMIT Psychiatry & Neurology Psychiatry; ATTEND Psychiatry & Neurology Psychiatry
PROC: GZHZZZZ Group Psychotherapy (ICD-10-PCS; principal; 2017-02-02)
PROC: GZ58ZZZ Individual Psychotherapy, Cognitive-Behavioral (ICD-10-PCS; 2017-02-02)
PROC: GZ56ZZZ Individual Psychotherapy, Supportive (ICD-10-PCS; 2017-02-02)
DX: F31.5 Bipolar disorder, current episode depressed, severe, with psychotic features (principal); F10.20 Alcohol dependence, uncomplicated; F12.20 Cannabis dependence, uncomplicated; F17.210 Nicotine dependence, cigarettes, uncomplicated; F41.9 Anxiety disorder, unspecified; J45.909 Unspecified asthma, uncomplicated; Z79.899 Other long term (current) drug therapy

== ENCOUNTER 2017-07-18 10:42 | Emergency (ER) | payer MEDICAID ==
[2017-07-18 10:43] VITALS: BMI 21.4
[2017-07-18 10:51] VITALS: TEMP 98.2; O2SAT 99
--- NOTE | 2017-07-18 11:21 | C.PDOC ---
History Of Present Illness 26yo female presents to ER c/o "white tongue" and a dry mouth sensation since yesterday. Patient was seen at [place] on 07/04/17, was diagnosed with a UTI and treated with diflucan and bactrin. She states she finished the antibiotics last week and her UTI symptoms went away. She felt well till yesterday when the dry mouth started. She denies any history of autoimmune disorders or diabetes. Pt is tolerating PO, no change in appetite. No n/v. She denies any fever, chills, difficulty breathing, difficulty swallowing, throat swelling, mouth swelling, cough, or rash. PMD: Cant remember Time Seen by Provider: 07/18/17 10:52 Chief Complaint (Nursing): Medical Clearance History Per: Patient History/Exam Limitations: no limitations Onset/Duration Of Symptoms: Days (1) Current Symptoms Are (Timing): Still Present Additional History Per: Patient Past Medical History Reviewed: Historical Data, Nursing Documentation, Vital Signs Vital Signs: Last Vital Signs Temp 98.2 F 07/18/17 10:48 Pulse 88 07/18/17 11:37 Resp 16 07/18/17 11:37 BP 138/89 07/18/17 11:37 Pulse Ox 99 07/18/17 12:17 - Medical History PMH: Asthma, Bipolar Disorder, Depression Denies: Diabetes, Hepatitis, HIV, HTN, Seizures, Sexually Transmitted Disease Other PMH: no autoimmune conditions Surgical History: No Surg Hx - [facility] Procedures GROUP PSYCHOTHERAPY (02/02/17) INDIV PSYCHOTHERAPY FOR SUBSTANCE ABUSE TREATMENT, SUPPORT (12/09/16) INDIVIDUAL PSYCHOTHERAPY, COGNITIVE-BEHAVIORAL (02/02/17) INDIVIDUAL PSYCHOTHERAPY, SUPPORTIVE (02/02/17) MEDICATION MANAGEMENT (12/09/16) Family History: States: No Known Family Hx, Unknown Family Hx - Social History Hx Tobacco Use: No Hx Alcohol Use: Yes Hx Substance Use: No - Immunization History Hx Tetanus Toxoid Vaccination: No Hx Influenza Vaccination: No Hx Pneumococcal Vaccination: No Review Of Systems Except As Marked, All Systems Reviewed And Found Negative. Constitutional: Negative for: Fever, Chills ENT: Positive for: Other (white coating on tongue, dry mouth sensation). Negative for: Mouth Swelling, Throat Pain, Throat Swelling Respiratory: Negative for: Shortness of Breath Physical Exam - Physical Exam Appears: Non-toxic, No Acute Distress Skin: Normal Color, Warm, Dry Head: Atraumatic, Normacephalic Eye(s): bilateral: Normal Inspection, PERRL, EOMI Ear(s): Bilateral: Normal Nose: Normal Oral Mucosa: Moist, No Other (no lesions) Tongue: No Swelling, Other (mild white coat on tongue, no plaques or patches) Lips: No Swelling Throat: Normal, No Erythema, No Exudate Neck: Normal ROM, Supple Chest: Symmetrical Cardiovascular: Rhythm Regular Respiratory: Normal Breath Sounds, No Wheezing Extremity: Normal ROM Neurological/Psych: Oriented x3, Normal Speech ED Course And Treatment O2 Sat by Pulse Oximetry: 99 (RA) Pulse Ox Interpretation: Normal Progress Note: Patient given Diflucan 150mg PO in ER. patient's blood sugar level is 93. Pt was seen and evaluted by Dr. Olivares, agreed upon plan and treatment. Pt instructed to follow up with ENT specialist in 1-2 days or return to ER if symtpoms persist or worsen. Disposition - Disposition Referrals: King Cotto MD [Staff Provider] - Disposition: HOME/ ROUTINE Disposition Time: 11:20 Condition: STABLE Additional Instructions: Follow up with your PMD/ENT in 1-2 days. Return to ER if symptoms persist or worsen. Instructions: Thrush (DC) Forms: [facility] (Uzbek) - Clinical Impression Clinical Impression: Dry mouth, unspecified, Oral thrush - PA / E M ASSEMBLER / Resident Statement MD/DO has reviewed & agrees with the documentation as recorded. - Scribe Statement The provider has reviewed the documentation as recorded by the Scribe (Kimber Mendoza) Provider Attestation: All medical record entries made by the Scribe were at my direction and personally dictated by me. I have reviewed the chart and agree that the record accurately reflects my personal performance of the history, physical exam, medical decision making, and the department course for this patient. I have also personally directed, reviewed, and agree with the discharge instructions and disposition.
[2017-07-18 11:38] VITALS: BP 138/89; PULSE 88; RESP 16
== END 2017-07-18 11:37 | disposition home or self-care (01) ==
LOC: C.ER 10:42
DX: R68.2 Dry mouth, unspecified (principal); B37.0 Candidal stomatitis

== ENCOUNTER 2017-09-11 19:47 | Inpatient (IN) | payer MEDICAID ==
[2017-09-11 19:47] VITALS: BMI 21.4
--- NOTE | 2017-09-11 20:37 | C.PDOC ---
History Of Present Illness 26yo female with history of depression, comes to ER complaining of persistent depression and suicidal ideation x 2 weeks. She states "my abilify isn't helping " and reports she has been taking Abilify, lithium and Ativan sine May for depression with no improvement. She denies any suicidal attempts, homicidal ideation, auditory/visual hallucinations. At present, patient has no medical complaints. Time Seen by Provider: 09/11/17 20:15 Chief Complaint (Nursing): Psychiatric Evaluation History Per: Patient History/Exam Limitations: no limitations Onset/Duration Of Symptoms: Persistent (x 2 weeks) Current Symptoms Are (Timing): Still Present Suicide/Self Injury Attempted (Context): None Associated Symptoms: Depression, Suicidal Thoughts. denies: Suicidal Plan Past Medical History Reviewed: Historical Data, Nursing Documentation, Vital Signs Vital Signs: Last Vital Signs Temp 98.2 F 09/11/17 20:01 Pulse 80 09/11/17 20:01 Resp 14 09/11/17 20:01 BP 119/71 09/11/17 20:01 Pulse Ox 97 09/11/17 22:28 - Medical History PMH: Asthma, Bipolar Disorder, Depression Denies: Diabetes, Hepatitis, HIV, HTN, Seizures, Sexually Transmitted Disease Surgical History: No Surg Hx - [facility] Procedures GROUP PSYCHOTHERAPY (02/02/17) INDIV PSYCHOTHERAPY FOR SUBSTANCE ABUSE TREATMENT, SUPPORT (12/09/16) INDIVIDUAL PSYCHOTHERAPY, COGNITIVE-BEHAVIORAL (02/02/17) INDIVIDUAL PSYCHOTHERAPY, SUPPORTIVE (02/02/17) MEDICATION MANAGEMENT (12/09/16) Family History: States: Unknown Family Hx - Social History Hx Tobacco Use: No Hx Alcohol Use: Yes Hx Substance Use: No - Immunization History Hx Tetanus Toxoid Vaccination: No Hx Influenza Vaccination: No Hx Pneumococcal Vaccination: No Review Of Systems Except As Marked, All Systems Reviewed And Found Negative. Constitutional: Negative for: Fever, Chills Cardiovascular: Negative for: Chest Pain Respiratory: Negative for: Shortness of Breath Gastrointestinal: Negative for: Abdominal Pain Psych: Positive for: Depression, Suicidal ideation Physical Exam - Physical Exam Appears: Non-toxic, No Acute Distress Skin: Normal Color, Warm, Dry Head: Atraumatic, Normacephalic Eye(s): bilateral: Normal Inspection, PERRL, EOMI Neck: Normal ROM, Supple Chest: Symmetrical Cardiovascular: Rhythm Regular Respiratory: Normal Breath Sounds Gastrointestinal/Abdominal: Normal Exam, Soft, No Tenderness Back: Normal Inspection Extremity: Normal ROM Neurological/Psych: Oriented x3, Other (flat affect; +active SI; no acute intoxication) ED Course And Treatment - Laboratory Results Result Diagrams: 09/11/17 20:35 09/11/17 20:35 O2 Sat by Pulse Oximetry: 97 (RA) Pulse Ox Interpretation: Normal Progress - Re-Evaluation Re-evaluation Note: 09/11/17 21:59 MED CLEAR FOR CRISIS. CRISIS NOTIFIED 09/11/17 22:28 PENDING DISPO PSYCH - Data Reviewed Data Reviewed: Lab, Old records Disposition Counseled Patient/Family Regarding: Studies Performed, Diagnosis - Disposition Disposition: HOSPITALIZED Disposition Time: 22:52 Condition: STABLE - Clinical Impression Clinical Impression: Depression, Suicidal ideation - Scribe Statement The provider has reviewed the documentation as recorded by the Fatou Mendoza Provider Attestation: All medical record entries made by the Fatou were at my direction and personally dictated by me. I have reviewed the chart and agree that the record accurately reflects my personal performance of the history, physical exam, medical decision making, and the department course for this patient. I have also personally directed, reviewed, and agree with the discharge instructions and disposition.
[2017-09-11 20:39] LABS: BASO % 0.5 % (0.0-2.0); EOS # 0.3 K/uL (0.0-0.7); EOS % 3.6 % (0.0-4.0); HEMOGLOBIN 12.7 g/dL (11.0-16.0); LYMPH # 2.2 K/uL (1.0-4.3); MEAN CELL VOLUME 89.2 fL (81.0-99.0); MEAN CORPUSCULAR HEMOGLOBIN 30.4 pg (27.0-31.0); MEAN PLATELET VOLUME 9.7 fL (7.2-11.7); MONO # 0.6 K/uL (0.0-0.8); MONO % 6.7 % (0.0-10.0); NEUT # 5.6 K/uL (1.8-7.0); NEUT % 64.2 % (50.0-75.0); NRBC % 0.1 % (0.0-2.0); RBC 4.19 Mil/uL (3.80-5.20); WHITE BLOOD COUNT 8.7 K/uL (4.8-10.8)
[2017-09-11 20:52] LABS: ALB/GLOB RATIO 1.6 (1.0-2.1); ALT/SGPT 25 U/L (9-52); AST/SGOT 17 U/L (14-36); BLOOD UREA NITROGEN 6 mg/dL (7-17); CALCIUM 9.5 mg/dl (8.6-10.4); GFR AFRICAN-AMERICAN > 60; GFR NON-AFRICAN AMERICAN > 60
[2017-09-11 21:16] LABS: HCG,QUALITATIVE URINE NEGATIVE (NEGATIVE)
[2017-09-11 21:20] LABS: SQUAMOUS EPITHIAL 1 /hpf (0-5); URINE BILIRUBIN 1+ (NEGATIVE); URINE BLOOD NEGATIVE (NEGATIVE); URINE CLARITY Clear (Clear); URINE COLOR Yellow (YELLOW); URINE GLUCOSE (UA) NORMAL (Normal); URINE LEUKOCYTE ESTERASE NEG Leu/uL (Negative); URINE PROTEIN 1+ mg/dL (NEGATIVE); URINE UROBILINOGEN NORMAL mg/dL (0.2-1.0)
[2017-09-11 21:37] LABS: BARBITURATES, UR NEGATIVE (NEGATIVE); BENZODIAZEPINES, UR NEGATIVE (NEGATIVE); OPIATES, UR NEGATIVE (NEGATIVE); PHENCYCLIDINE, UR NEGATIVE (NEGATIVE)
--- NOTE | 2017-09-12 00:49 | PCM.BM ---
<Ania Garnett - Last Filed: 09/12/17 00:46> Treatment Plan Problems - Problems identified on initial assessmt Depression Date Initiated: 09/12/17 Time Initiated: 23:15 Date resolved: 09/21/17 Assessment reference: NA Status: Active Treatment assets and liabiliti Patient Assests: adapts well, cooperative, insightful, resourceful, self-reliant , ADL independent, physically healthy, negotiates basic needs, cognitively intact, strong nicolle - Milieu Protocol Maintain good personal hygiene: daily Encourage regular showers, daily Remind patient to perform daily oral care, every shift Assist patient to perform ADL's Conduct patient checks and document Observation sheet: Q15 minutes Maintain personal safety: every shift Educate patient to report safety concerns to staff, every shift Monitor environment for contraband/sharps Medication safety: Monitor for expected outcome, potential side effects: every shift, Assess barriers to learning: every shift, Assess readiness for medication education: every shift <Mary Lundberg - Last Filed: 09/14/17 13:53> Family Contact Family involvement: Family/SO is involved Family contact: Patient agrees to contact Family contact name: Laxmi Vega-mother Family contacted how many times per week?: 1 - Goals for Treatment Patient goals for treatment: "I need help." Discharge/Continuing Care - Education Needs Education Needs: Patient Medication, Patient Coping Skills - Discharge Discharge Criteria: Tolerates medication w/o severe side effects, Free of paranoid thoughts Discharge to:: Home, With Family - Treatment Team Participation Discussed with Family/SO: No Was Patient/Family/SO present at Treatment Team Meeting: Yes
--- NOTE | 2017-09-12 06:11 | PCM.PSYCH ---
Initial Psychiatric Evaluation - Initial Psychiatric Evaluation Type of Admission: Voluntary Legal Status: Capacity Chief Complaint (in patient's own words): I was feeling depressed and hearing voices' History of Present Illness and Precipitating Events: Pt is a 26 year old female AAF, who presented to ED today with depressed mood , auditory hallucinations and suicidal thoughts. [employer] is familiar with the patient. She has an extensive psychiatric history with numerous psychiatric admissions, she was last discharged from almost 8 months ago. Pt remained somewhat disorganized and internally preoccupied throughout the interview. As per the patient, I was taking abilify 10 mg, lithium which makes me feel okay and ativan 1mg but the abilify I feel like doesn't work, they keep giving me these second generational medication and its not working maybe I need something else but I had an abilify shot last month and I had a Haldol shot at [facility] but I dont want any more injections. I ve been feeling suicidal for like a month now I am dx with bipolar dx since Mar 2016. Pt remained paranoid and delusional throughout the interview. She appeared to have thought blocking and responding to internal stimuli. As per the patients mother, "She was admitted to [facility] [place] some time ago for schizophrenia, she was going for treatment then she stopped, she stopped taking her meds, she has erratic behavior, she is paranoid thinking people are going to follow her, she selfs-medicate with weed and I tell her to stop so she can be regulated, she does not like to go outside, she speaks in tongues and she hides thinking the police is after her, she needs supervisor compounding and finishing help." Pt denied legal hx and hx of abuse. PMH Asthma Current Medications: Active Medications Generic Name Dose Route Start Last Admin Trade Name Freq PRN Reason Stop Dose Admin Benztropine Mesylate 2 mg 09/12/17 06:08 Cogentin PO Q6 PRN Extra Pyramidal Symptoms Diphenhydramine HCl 50 mg 09/12/17 06:08 Benadryl PO Q6 PRN Extra Pyramidal Symptoms Haloperidol 5 mg 09/12/17 06:08 Haldol PO Q8 PRN Moderate Agitation Hydroxyzine HCl 25 mg 09/12/17 06:08 Atarax PO Q6 PRN Anxiety Pneumococcal Polyvalent Vaccine 0.5 ml 09/14/17 10:00 Pneumovax 23 Vaccine IM 09/14/17 10:01 .ONCE ONE Trazodone HCl 50 mg 09/12/17 22:00 Desyrel PO HS [facility] Past Psychiatric History - Past Psychiatric History Previous Treatment History: Inpatient Pertinent Medical Hx (Current Medical&Sleep Prob, Allergies): Allergies Allergy/AdvReac Type Severity Reaction Status Date / Time crab Allergy Severe SWELLING Verified 09/11/17 20:05 shrimp Allergy Severe SWELLING Verified 09/11/17 20:05 shell fish Allergy ANGIOEDEMA Uncoded 09/11/17 20:05 Decker Carbonate [Decker Carbonate 300MG] 900 mg PO TID 02/02/17 Abilify Maintena 400 mg IM 09/11/17 LORazepam [Ativan] 1 mg PO HS 09/11/17 Review of Systems - Review of Systems All systems: reviewed and no additional remarkable complaints except - Psychiatric Psychiatric: Anxiety, Auditory Hallucinations, Depression, Irritability, Suicidal Ideation Mental Status Examination - Personal Presentation Personal Presentation: Looks stated age - Affect Affect: Constricted, Depressed - Motor Activity Motor Activity: Calm - Reliability in Providing Information Reliability in Providing Information: Poor, due to alteration in thoughts, Poor , due to altered mood - Speech Speech: Disorganized - Mood Mood: Depressed, Anxious - Formal Thought Process Formal Thought Process: Hallucinations, Delusions, Paranoia, Loosening of associations - Hallucinations/Delusions Hallucinations: Visual, Auditory Delusions: Persecution - Obsessions/Compulsions Obsessions: No Compulsions: No - Cognitive Functions Orientation: Person, Place, Situation, Time Sensorium: Alert Attention/Concentration: Attentive Abstract Thinking: [place] Estimate of Intelligence: Below average Judgement: Imparied, as evidence by: Poor judgement, Imparied, as evidence by: Lack of insight into illness - Risk Risk: Suicidal, Diminished functioning - Limitations Limitations: Living alone DSM 5 DX - DSM 5 DSM 5 Diagnosis: Schizoaffective disorder bipolar type Cannabis use disorder severe Asthma - Recommended/Plan of Treatment Treatment Recommendations and Plan of Treatment: Schizoaffective disorder bipolar type -CBT -Psychoeducation -Supportive therapy, group therapy -Wellbutrin 75 mg by mouth daily -Trazodone 50 mg by mouth daily at bedtime -Haldol 5 mg PO BID -Neurontin 300 mg PO TID -D/C Abilify -D/C [place] Cannabis use disorder severe -CBT -Psychoeducation -Supportive therapy, individual therapy -Use PR for abstinence
--- NOTE | 2017-09-13 23:59 | PCM.PYCHPN ---
Psychiatric Progress Note - Psychiatric Progress Note Patient seen today, length of contact: 15 min Patient Chief Complaint: I was feeling depressed and hearing voices' Problems Identified/Issues Discussed: Patient seen and evaluated, chart reviewed and discussed with the nurse. Pt remained somewhat disorganized and internally preoccupied throughout the interview. She appeared to have thought blocking and responding to internal stimuli. Pt reports depressed mood, feelings of hopelessness and helplessness. She remained isolated and withdrawn, and confined to her room. Patient is compliant with medications and denies any side effects. Symptoms are improving but need more time to stabilize. Support and psychoeducation given. Medication Change: Yes Medical Record Reviewed: Yes Mental Status Examination - Cognitive Function Orientation: Person, Place, Situation, Time Memory: Intact Attention: Poor Concentration: Poor Association: Loose Fund of Knowledge: Poor - Mood Mood: Depressed, Anxious - Affect Affect: Constricted, Depressed - Speech Speech: Soft - Formal Thought Process Formal Thought Process: Hallucinations, Delusions, Paranoia, Loosening of associations - Suicidal Ideation Suicidal Ideation: No - Homicidal Ideation Homicidal Ideation: No Goal/Treatment Plan - Goal/Treatment Plan Need for Continued Stay: Discharge may exacerbated symptoms, Failed transitioning Progress Toward Problem(s) and Goals/Treatment Plan: Schizoaffective disorder bipolar type -CBT -Psychoeducation -Supportive therapy, group therapy -Wellbutrin 75 mg by mouth daily -Trazodone 50 mg by mouth daily at bedtime -Haldol 5 mg PO BID -Neurontin 300 mg PO TID -D/C Abilify -D/C [place] Cannabis use disorder severe -CBT -Psychoeducation -Supportive therapy, individual therapy -Use MA for abstinence
[2017-09-14] MEDS ORDERED: Pneumococcal 23-Valent Vaccine IM ONE (10:00)
[2017-09-14] MEDS: Divalproex 250 mg DR Tab PO SCH ×2 (11:43→17:43)
[2017-09-15] MEDS: Divalproex 250 mg DR Tab PO SCH ×2 (10:12→17:23)
--- NOTE | 2017-09-15 14:27 | PCM.PYCHPN ---
Psychiatric Progress Note - Psychiatric Progress Note Patient seen today, length of contact: 15 Minutes Problems Identified/Issues Discussed: Patient seen, chart reviewed, case discussed with the staff. Issues related to illness and treatment were discussed with the patient and staff. Reported compliant with treatment with no adverse affects. Tolerating treatment very well. Patient reported feeling little better. Staff reported that patient is irritable at times and is isolative. Patient reported that she is avoiding people as she with use that people are talking about her. Calm and cooperative with good eye contact. Aftercare discussed with the patient. Awake alert oriented 3, no delusions, no auditory or visual hallucination, nose suicidal ideation or homicidal ideation at time of evaluation. Medical Problems: None reported Diagnostic Results: Reviewed DSM 5 Symptoms Update: Some improvement with treatment. Medication Change: No Medical Record Reviewed: Yes Mental Status Examination - Cognitive Function Orientation: Person, Place, Situation, Time Memory: Intact Attention: WNL Concentration: WNL Association: Loose Fund of Knowledge: WNL Decription of patient's judgement and insights: Poor - Mood Mood: Depressed - Affect Affect: Blunted, Depressed - Speech Speech: Appropriate - Formal Thought Process Formal Thought Process: Delusions, Paranoia, Loosening of associations - Suicidal Ideation Suicidal Ideation: No - Homicidal Ideation Homicidal Ideation: No Goal/Treatment Plan - Goal/Treatment Plan Need for Continued Stay: Remain at risks for inpatient hospitalization, Discharge may exacerbated symptoms, Severe functional impairment Progress Toward Problem(s) and Goals/Treatment Plan: Patient education. Supportive therapy. Continue treatment as before. Patient will go to [facility] for follow-up care after discharge from the hospital. Estimated Date of D/C: 09/21/17 - Smoking Cessation Smoking Cessation Initiated: Yes
[2017-09-16] MEDS: Divalproex 250 mg DR Tab PO SCH ×2 (09:56→17:19)
--- NOTE | 2017-09-16 23:28 | PCM.PYCHPN ---
Psychiatric Progress Note - Psychiatric Progress Note Patient seen today, length of contact: 15 Minutes Patient Chief Complaint: I believe that groups and other people on the unit or talking about me. Problems Identified/Issues Discussed: Patient seen, chart reviewed, case discussed with the staff. Issues related to illness and treatment were discussed with the patient and staff. Reported compliant with treatment with no adverse affects. Tolerating treatment very well. Patient reported feeling little better. Staff reported that patient is irritable at times and is isolative. Patient reported that she is avoiding people as she with use that people are talking about her. Calm and cooperative with good eye contact. Aftercare discussed with the patient. Awake alert oriented 3, no auditory or visual hallucination, nose suicidal ideation or homicidal ideation at time of evaluation. Medical Problems: None reported Diagnostic Results: Reviewed Medication Change: No Medical Record Reviewed: Yes Mental Status Examination - Cognitive Function Orientation: Person, Place, Situation, Time Memory: Intact Attention: WNL Concentration: WNL Association: WNL Fund of Knowledge: WNL Decription of patient's judgement and insights: Poor - Mood Mood: Depressed - Affect Affect: Blunted, Depressed - Speech Speech: Appropriate - Formal Thought Process Formal Thought Process: Delusions, Paranoia, Loosening of associations - Suicidal Ideation Suicidal Ideation: No - Homicidal Ideation Homicidal Ideation: No Goal/Treatment Plan - Goal/Treatment Plan Need for Continued Stay: Remain at risks for inpatient hospitalization, Discharge may exacerbated symptoms, Severe functional impairment Progress Toward Problem(s) and Goals/Treatment Plan: Patient education. Supportive therapy. Continue treatment as before. Patient will go to [facility], [facility] for follow-up care after discharge from the hospital. Estimated Date of D/C: 09/21/17 - Smoking Cessation Smoking Cessation Initiated: Yes
[2017-09-17] MEDS: Divalproex 250 mg DR Tab PO SCH ×2 (09:10→17:20)
--- NOTE | 2017-09-17 23:20 | PCM.PYCHPN ---
Psychiatric Progress Note - Psychiatric Progress Note Patient seen today, length of contact: 15 min Patient Chief Complaint: I'm feeling better. Still I feel that other people are talking about me. Problems Identified/Issues Discussed: Patient seen, chart reviewed, case discussed with the staff. Issues related to illness and treatment were discussed with the patient and staff. Reported compliant with treatment with no adverse affects. Tolerating treatment very well. Patient reported feeling little better. Staff reported that patient is irritable at times and is isolative. Patient reported that she is avoiding people as she with use that people are talking about her. Calm and cooperative with good eye contact. Aftercare discussed with the patient. Staff reported some behavioral disturbances briefly but redirectable. Awake alert oriented 3, no auditory or visual hallucination, nose suicidal ideation or homicidal ideation at time of evaluation. Medical Problems: None reported Diagnostic Results: Reviewed DSM 5 Symptoms Update: Some improvement with treatment Medication Change: No Medical Record Reviewed: Yes Mental Status Examination - Cognitive Function Orientation: Person, Place, Situation, Time Memory: Intact Attention: WNL Concentration: WNL Association: WNL Fund of Knowledge: WN Decription of patient's judgement and insights: Fair - Mood Mood: Depressed - Affect Affect: Blunted, Depressed - Speech Speech: Appropriate - Formal Thought Process Formal Thought Process: Delusions, Paranoia, Loosening of associations - Suicidal Ideation Suicidal Ideation: No - Homicidal Ideation Homicidal Ideation: No Goal/Treatment Plan - Goal/Treatment Plan Need for Continued Stay: Remain at risks for inpatient hospitalization, Discharge may exacerbated symptoms, Severe functional impairment Progress Toward Problem(s) and Goals/Treatment Plan: Patient education. Supportive therapy. Continue treatment as before. Patient will go to [facility], [facility] for follow-up care after discharge from the hospital. Estimated Date of D/C: 09/21/17 - Smoking Cessation Smoking Cessation Initiated: Yes
[2017-09-18 06:41] VITALS: RESP 20
[2017-09-18] MEDS: Divalproex 250 mg DR Tab PO SCH ×2 (09:00→17:11)
--- NOTE | 2017-09-18 17:14 | PCM.PYCHPN ---
Psychiatric Progress Note - Psychiatric Progress Note Patient seen today, length of contact: 15 min Patient Chief Complaint: I'm feeling better. Still I feel that other people are talking about me. Problems Identified/Issues Discussed: Patient seen, chart reviewed, case discussed with the staff. Issues related to illness and treatment were discussed with the patient and staff. Reported compliant with treatment with no adverse affects. Tolerating treatment very well. Patient reported feeling little better. Staff reported that patient is irritable at times and is isolative. Patient reported that she is avoiding people as she with use that people are talking about her. Calm and cooperative with good eye contact. Aftercare discussed with the patient. Staff reported still some behavioral disturbances. Awake alert oriented 3, no auditory or visual hallucination, nose suicidal ideation or homicidal ideation at time of evaluation. Medical Problems: None reported Diagnostic Results: Reviewed DSM 5 Symptoms Update: Some improvement with treatment Medication Change: Yes (Dose of Zyprexa increased to 10 mg twice a day) Medical Record Reviewed: Yes Mental Status Examination - Cognitive Function Orientation: Person, Place, Situation, Time Memory: Intact Attention: WNL Concentration: WNL Association: WNL Fund of Knowledge: [facility] Decription of patient's judgement and insights: Fair - Mood Mood: Depressed - Affect Affect: Blunted, Depressed - Speech Speech: Appropriate - Formal Thought Process Formal Thought Process: Delusions, Paranoia, Loosening of associations - Suicidal Ideation Suicidal Ideation: No - Homicidal Ideation Homicidal Ideation: No Goal/Treatment Plan - Goal/Treatment Plan Need for Continued Stay: Remain at risks for inpatient hospitalization, Discharge may exacerbated symptoms, Severe functional impairment Progress Toward Problem(s) and Goals/Treatment Plan: Patient education. Supportive therapy. We'll increase the dose of Zyprexa to 10 mg twice a day. Continue rest of the treatment as before. Patient will go to [facility], [facility] for follow-up care after discharge from the hospital. Estimated Date of D/C: 09/21/17 - Smoking Cessation Smoking Cessation Initiated: Yes
[2017-09-19 06:26] VITALS: O2SAT 100
[2017-09-19] MEDS: Divalproex 250 mg DR Tab PO SCH (09:03)
[2017-09-19] MEDS ORDERED: Pantoprazole 20 mg EC Tab PO SCH (13:30)
--- NOTE | 2017-09-19 13:42 | PCM.PYCHPN ---
Psychiatric Progress Note - Psychiatric Progress Note Patient seen today, length of contact: 15 min Patient Chief Complaint: "OK" Problems Identified/Issues Discussed: The pt is seen, chart reviewed, case discussed with staff. Support and psychoeducation given No new symptoms reported, though she has some vague somatic complaints Improving slowly and needs more time No SEs from medications, risks discussed. Depakote increased After care discussed Medication Change: Yes (increase depakote) Medical Record Reviewed: Yes Mental Status Examination - Cognitive Function Orientation: Person, Place, Situation, Time Memory: Intact Attention: WNL Concentration: WNL Association: WNL Fund of Knowledge: WNL - Mood Mood: Depressed - Affect Affect: Constricted - Speech Speech: Appropriate - Formal Thought Process Formal Thought Process: Paranoia, Loosening of associations (less) - Suicidal Ideation Suicidal Ideation: No - Homicidal Ideation Homicidal Ideation: No Goal/Treatment Plan - Goal/Treatment Plan Need for Continued Stay: Remain at risks for inpatient hospitalization, Discharge may exacerbated symptoms, Severe functional impairment Progress Toward Problem(s) and Goals/Treatment Plan: Continue medications Support and psychoeducation daily Attend groups and activities daily After care planning by CLEMENTE Estimated Date of D/C: 09/21/17
[2017-09-19] MEDS ORDERED: Vitamins A & D Oint UD Foilpak TOP PRN (15:50)
[2017-09-19] MEDS ORDERED: Vitamins A & D Oint UD Foilpak TOP SCH (16:00)
[2017-09-19] MEDS: Divalproex 500 mg DR Tab PO SCH (17:46)
[2017-09-20] MEDS: Divalproex 500 mg DR Tab PO SCH ×2 (09:10→17:42)
[2017-09-20] MEDS: Pantoprazole 20 mg EC Tab PO SCH (10:09)
--- NOTE | 2017-09-20 22:19 | PCM.PYCHPN ---
Psychiatric Progress Note - Psychiatric Progress Note Patient seen today, length of contact: 16 min Patient Chief Complaint: "I am anxious" Problems Identified/Issues Discussed: The pt is seen, chart reviewed, case discussed with staff. Support and psychoeducation given No new symptoms reported, though she still has some vague somatic complaints Improving slowly and needs more time, but much better than before No SEs from medications, risks discussed. Medication Change: No Medical Record Reviewed: Yes Mental Status Examination - Cognitive Function Orientation: Person, Place, Situation, Time Memory: Intact Attention: WNL Concentration: WNL Association: WNL Fund of Knowledge: WNL - Mood Mood: Anxious - Affect Affect: Constricted - Speech Speech: Appropriate - Formal Thought Process Formal Thought Process: Paranoia, Loosening of associations (less) - Suicidal Ideation Suicidal Ideation: No - Homicidal Ideation Homicidal Ideation: No Goal/Treatment Plan - Goal/Treatment Plan Need for Continued Stay: Remain at risks for inpatient hospitalization, Discharge may exacerbated symptoms, Severe functional impairment Progress Toward Problem(s) and Goals/Treatment Plan: Continue medications Support and psychoeducation daily Attend groups and activities daily After care planning by CLEMENTE Estimated Date of D/C: 09/21/17
[2017-09-21 06:27] VITALS: PULSE 98; TEMP 98.1
[2017-09-21 06:38] VITALS: BP 137/81
[2017-09-21] MEDS: Divalproex 500 mg DR Tab PO SCH (09:40)
[2017-09-21] MEDS: Pantoprazole 20 mg EC Tab PO SCH (09:40)
--- NOTE | 2017-09-21 10:05 | PCM.PYCHDC ---
Mental Status Examination - Mental Status Examination Orientation: Person, Place, Situation, Time Memory: Intact Mood: Neutral Affect: Constricted Speech: Soft Attention: WNL Concentration: WNL Association: WNL Fund of Knowledge: WNL Formal Thought Process: No Impairment Description of patient's judgement and insight: good, fair Psychotic Thoughts and Behaviors: denies any AVH Suicidal Ideation: No Current Homicidal Ideation?: No Discharge Summary - Discharge Note Reason for Hospitalization: Pt is a 26 year old female AAF, who presented to ED today with depressed mood , auditory hallucinations and suicidal thoughts. Emr Specialist is familiar with the patient. She has an extensive psychiatric history with numerous psychiatric admissions, she was last discharged from almost 8 months ago. Pt remained somewhat disorganized and internally preoccupied throughout the interview. As per the patient, I was taking abilify 10 mg, lithium which makes me feel okay and ativan 1mg but the abilify I feel like doesn't work, they keep giving me these second generational medication and its not working maybe I need something else but I had an abilify shot last month and I had a Haldol shot at [facility] but I dont want any more injections. I ve been feeling suicidal for like a month now I am dx with bipolar dx since Mar 2016. Pt remained paranoid and delusional throughout the interview. She appeared to have thought blocking and responding to internal stimuli. As per the patients mother, "She was admitted to [facility] some time ago for schizophrenia, she was going for treatment then she stopped, she stopped taking her meds, she has erratic behavior, she is paranoid thinking people are going to follow her, she selfs-medicate with weed and I tell her to stop so she can be regulated, she does not like to go outside, she speaks in tongues and she hides thinking the police is after her, she needs manager intermediate help." Pt denied legal hx and hx of abuse. Consultations:: List each consultation separately and include: 1. Reason for request. 2. Findings. 3. Follow-up Summary of Hospital Course include:: 1. Description of specific treatment plan utilized for patients during their course of treatmen. 2. Summarize the time- course for resolution of acute symptoms and/or regressed behaviors. 3. Describe issues identified and worked on during hospitalization. 4. Describe medication utilized. 5. Describe medical problems identified and treated. 6. Reassessment of suicide risk Summary of Hospital Course: During the course of her stay, patient (pt) started progressively improving and she no longer remained irritable, depressed, paranoid and suicidal. Her mood and paranoia were improved and she started attending groups and meetings and started socializing. Patient denied any feelings of hopelessness, helplessness, and worthlessness, denied any problem with the sleep or appetite, denied suicidal ideation or homicidal ideation. Pt denied any auditory or visual hallucinations. She denied any withdrawal symptoms. Pt was treated with medications along with supportive therapy, milieu therapy and group therapy. Some changes were made in her current medications and patient was discharged on following medications. She tolerated these medications very well and denied any side effects. - Final Diagnosis (DSM 5) Condition upon Discharge: STABLE DSM 5: Schizoaffective disorder bipolar type Cannabis use disorder severe Disposition: HOME/ ROUTINE Follow-up Treatment Plan: Followup: She was discharged to the [facility] IDT program Education: Pt was educated and counseled about the risks and benefits of taking and not taking medications. Pt was educated and counseled about the risks of drinking and abusing drugs. Pt was educated and counseled to go to the ER or call 911 if pt develop suicidal ideation or homicidal ideation, worsening of symptoms or severe side effects of the meds. Prescriptions/Medication Reconciliation: Benztropine [Cogentin] 1 mg PO BID #60 tab buPROPion [Wellbutrin] 75 mg PO DAILY #30 tab Divalproex [Depakote DR] 500 mg PO BID #60 tcp Gabapentin [Neurontin] 300 mg PO TID #90 cap OLANZapine [Zyprexa] 10 mg PO BID #60 tab traZODone [Desyrel] 100 mg PO HS #30 tab - Smoking Cessation Smoking Cessation Medication prescribed: No - Antipsychotic Medications Pt discharged on 2 or more routine antipsychotic medications: No
== END 2017-09-21 12:44 | disposition home or self-care (01) | DRG 430 ==
LOC: C.ER 19:47 → C.5E 22:52
PROVIDERS: ADMIT Psychiatry & Neurology Psychiatry; ATTEND Psychiatry & Neurology Psychiatry
PROC: HZ89ZZZ Medication Management for Substance Abuse Treatment, Other Replacement Medication (ICD-10-PCS; principal; 2017-09-11)
PROC: GZ3ZZZZ Medication Management (ICD-10-PCS; 2017-09-11)
PROC: GZHZZZZ Group Psychotherapy (ICD-10-PCS; 2017-09-11)
PROC: GZ56ZZZ Individual Psychotherapy, Supportive (ICD-10-PCS; 2017-09-11)
PROC: HZ56ZZZ Individual Psychotherapy for Substance Abuse Treatment, Psychoeducation (ICD-10-PCS; 2017-09-11)
PROC: HZ46ZZZ Group Counseling for Substance Abuse Treatment, Psychoeducation (ICD-10-PCS; 2017-09-11)
DX: F25.0 Schizoaffective disorder, bipolar type (principal); F12.20 Cannabis dependence, uncomplicated; R45.851 Suicidal ideations; F17.210 Nicotine dependence, cigarettes, uncomplicated; J45.909 Unspecified asthma, uncomplicated; Z79.899 Other long term (current) drug therapy; Z81.8 Family history of other mental and behavioral disorders; Z91.14 Patient's other noncompliance with medication regimen; Z91.19 Patient's noncompliance with other medical treatment and regimen

== ENCOUNTER 2018-05-21 19:50 | Inpatient (IN) | payer MEDICAID ==
[2018-05-21 19:51] VITALS: BMI 21.4
[2018-05-21 20:58] LABS: SQUAMOUS EPITHIAL 3 /hpf (0-5); URINE BACTERIA RARE (<OCC); URINE BILIRUBIN NEGATIVE (NEGATIVE); URINE BLOOD NEGATIVE (NEGATIVE); URINE CLARITY Hazy (Clear); URINE COLOR Yellow (YELLOW); URINE GLUCOSE (UA) NORMAL (Normal); URINE LEUKOCYTE ESTERASE 1+ Leu/uL (Negative); URINE PROTEIN NEGATIVE (NEGATIVE); URINE UROBILINOGEN NORMAL mg/dL (0.2-1.0)
[2018-05-21 21:03] LABS: BASO # 0.1 K/uL (0.0-0.2); BASO % 0.7 % (0.0-2.0); EOS # 0.2 K/uL (0.0-0.7); EOS % 2.2 % (0.0-4.0); LYMPH # 2.7 K/uL (1.0-4.3); LYMPH % 27.2 % (20.0-40.0); MEAN CELL VOLUME 88.8 fL (81.0-99.0); MEAN CORPUSCULAR HEMOGLOBIN 30.3 pg (27.0-31.0); MEAN CORPUSCULAR HGB CONC 34.2 g/dL (33.0-37.0); MEAN PLATELET VOLUME 9.7 fL (7.2-11.7); MONO # 0.6 K/uL (0.0-0.8); MONO % 5.6 % (0.0-10.0); NEUT # 6.3 K/uL (1.8-7.0); NEUT % 64.3 % (50.0-75.0); RBC 4.99 Mil/uL (3.80-5.20); RED CELL DISTRIBUTION WIDTH 12.1 % (11.5-14.5); WHITE BLOOD COUNT 9.8 K/uL (4.8-10.8)
[2018-05-21 21:14] LABS: BARBITURATES, UR NEGATIVE (NEGATIVE); BENZODIAZEPINES, UR NEGATIVE (NEGATIVE); OPIATES, UR NEGATIVE (NEGATIVE); PHENCYCLIDINE, UR NEGATIVE (NEGATIVE)
[2018-05-21 21:18] LABS: HEMOGLOBIN 15.1 g/dL (11.0-16.0)
[2018-05-21 21:25] LABS: ALB/GLOB RATIO 1.4 (1.0-2.1); ALBUMIN 4.7 g/dL (3.5-5.0); ALT/SGPT 9 U/L (9-52); AST/SGOT 21 U/L (14-36); BLOOD UREA NITROGEN 11 mg/dL (7-17); CALCIUM 10.2 mg/dl (8.6-10.4); GFR NON-AFRICAN AMERICAN > 60
--- NOTE | 2018-05-21 21:41 | C.PDOC ---
History Of Present Illness 27 year old female with a history of bipolar disorder presents to the emergency department with complaints of suicidal ideation. Patient denies any suicidal plan or homicidal ideation. Time Seen by Provider: 05/21/18 20:10 Chief Complaint (Nursing): Psychiatric Evaluation History Per: Patient History/Exam Limitations: no limitations Onset/Duration Of Symptoms: Days Current Symptoms Are (Timing): Still Present Suicide/Self Injury Attempted (Context): None Modifying Factor(s): None Associated Symptoms: Suicidal Thoughts, Other (bipolar disorder). denies: Suicidal Plan Past Medical History Reviewed: Historical Data, Nursing Documentation, Vital Signs Vital Signs: Last Vital Signs Temp 97.6 F 05/21/18 19:56 Pulse 84 05/21/18 19:56 Resp 20 05/21/18 19:56 BP 124/80 05/21/18 19:56 Pulse Ox 98 05/21/18 19:56 - Medical History PMH: Anxiety, Asthma, Bipolar Disorder, Depression Denies: Atrial Fibrillation, Bronchitis, Diabetes (Patient denied), Hepatitis (Patient denied), HIV (Patient denied), HTN (Patient denied), Pneumonia, Pulmonary Embolism, Seizures (Patient denied), Sexually Transmitted Disease (Patient denied) Surgical History: No Surg Hx Denies: Pacemaker - [facility] Procedures GROUP SOAKER SODA WORKER FOR SUBSTANCE ABUSE TREATMENT, PSYCHOEDUCATION (09/11/17) GROUP PSYCHOTHERAPY (09/11/17) INDIV PSYCHOTHERAPY FOR SUBSTANCE ABUSE TREATMENT, SUPPORT (12/09/16) INDIV PSYCHOTHERAPY FOR SUBSTANCE ABUSE, PSYCHOEDUCATION (09/11/17) INDIVIDUAL PSYCHOTHERAPY, COGNITIVE-BEHAVIORAL (02/02/17) INDIVIDUAL PSYCHOTHERAPY, SUPPORTIVE (09/11/17) MEDICATION MANAGEMENT (09/11/17) MEDS MGMT FOR SUBSTANCE ABUSE TREATMENT, OTH REPL MED (09/11/17) Family History: States: No Known Family Hx - Social History Hx Tobacco Use: No Hx Alcohol Use: No Hx Substance Use: Yes - Immunization History Hx Tetanus Toxoid Vaccination: No Hx Influenza Vaccination: No Hx Pneumococcal Vaccination: No Review Of Systems Except As Marked, All Systems Reviewed And Found Negative. Constitutional: Negative for: Fever, Chills Cardiovascular: Negative for: Chest Pain Respiratory: Negative for: Cough, Shortness of Breath Gastrointestinal: Negative for: Nausea, Vomiting Psych: Positive for: Suicidal ideation. Negative for: Other (suicidal plan, homicidal ideation) Physical Exam - Physical Exam Appears: Non-toxic, Agitated, Other (bizarre affect) Skin: Normal Color, Warm, Dry Head: Atraumatic, Normacephalic Eye(s): bilateral: Normal Inspection, PERRL, EOMI Oral Mucosa: Moist Neck: Normal, Supple Chest: Symmetrical, No Tenderness Cardiovascular: Rhythm Regular, No Murmur Respiratory: Normal Breath Sounds, No Rales, No Rhonchi, No Wheezing Gastrointestinal/Abdominal: Soft, No Tenderness, No Guarding, No Rebound Extremity: Normal ROM Neurological/Psych: Oriented x3, Normal Speech, Normal Cognition ED Course And Treatment - Laboratory Results Result Diagrams: 05/21/18 21:00 05/21/18 21:00 Lab Results: Total Bilirubin 0.5 mg/dL (0.2-1.3) 05/21/18 21:00 AST 21 U/L (14-36) 05/21/18 21:00 ALT 9 U/L (9-52) D 05/21/18 21:00 Alkaline Phosphatase 85 U/L (38-126) 05/21/18 21:00 Total Protein 8.0 g/dL (6.3-8.3) 05/21/18 21:00 Albumin 4.7 g/dL (3.5-5.0) 05/21/18 21:00 Globulin 3.3 gm/dL (2.2-3.9) 05/21/18 21:00 Albumin/Globulin Ratio 1.4 (1.0-2.1) 05/21/18 21:00 Urine Color Yellow (YELLOW) 05/21/18 20:48 Urine Clarity Hazy (Clear) 05/21/18 20:48 Urine pH 5.0 (5.0-8.0) 05/21/18 20:48 Ur Specific [place] 1.014 (1.003-1.030) 05/21/18 20:48 Urine Protein Negative mg/dL (NEGATIVE) 05/21/18 20:48 Urine Glucose (UA) Normal mg/dL (Normal) 05/21/18 20:48 Urine Ketones Negative mg/dL (NEGATIVE) 05/21/18 20:48 Urine Blood Negative (NEGATIVE) 05/21/18 20:48 Urine Nitrate Negative (NEGATIVE) 05/21/18 20:48 Urine Bilirubin Negative (NEGATIVE) 05/21/18 20:48 Urine Urobilinogen Normal mg/dL (0.2-1.0) 05/21/18 20:48 Ur Leukocyte Esterase 1+ Silviano/uL (Negative) H 05/21/18 20:48 Urine WBC (Auto) 4 /hpf (0-5) 05/21/18 20:48 Urine RBC (Auto) 1 /hpf (0-3) 05/21/18 20:48 Ur Squamous Epith Cells 3 /hpf (0-5) 05/21/18 20:48 Urine Bacteria Rare (<OCC) 05/21/18 20:48 O2 Sat by Pulse Oximetry: 98 (RA) Pulse Ox Interpretation: Normal Medical Decision Making Medical Decision Making: Plan: Chemistry CBC POC Urine Urinalysis Patient is medically clear for crisis evaluation. As per stage set up worker Michael, patient is clear for psych admission under Dr. Reyna. Disposition Counseled Patient/Family Regarding: Studies Performed, Diagnosis - Disposition Disposition: HOSPITALIZED Disposition Time: 21:54 - Clinical Impression Clinical Impression: Bipolar disorder - Scribe Statement The provider has reviewed the documentation as recorded by the Scribe (Ernesto Ruelas) Provider Attestation: All medical record entries made by the Scribe were at my direction and personally dictated by me. I have reviewed the chart and agree that the record accurately reflects my personal performance of the history, physical exam, medical decision making, and the department course for this patient. I have also personally directed, reviewed, and agree with the discharge instructions and d isposition.
[2018-05-21 22:33] VITALS: O2SAT 100
--- NOTE | 2018-05-22 01:25 | PCM.BM ---
<Ania Garnett - Last Filed: 05/22/18 01:50> Treatment Plan Problems - Problems identified on initial assessmt Altered thought process Date Initiated: 05/21/18 Time Initiated: :55 Date resolved: 05/21/18 Assessment reference: NA Status: Active Altered sleep Patterns Date Initiated: 05/21/18 Time Initiated: :55 Date resolved: 05/21/18 Assessment reference: NA Status: Active Risk for injury Date Initiated: 05/21/18 Time Initiated: : Date resolved: 05/21/18 Assessment reference: NA Status: Active Treatment assets and liabiliti Patient Assests: adapts well (plan with OD with pills in the house. ), cooperative, insightful, resourceful, self-reliant, ADL independent, physically healthy, good support system (Pt. lives with her mother), negotiates basic needs, cognitively intact, strong nicolle Patient Liabilities: financial problems (Pt not working), substance abuse (use Marijuana) - Milieu Protocol Maintain good personal hygiene: daily Encourage regular showers, daily Remind patient to perform daily oral care, daily Assist patient to perform ADL's Conduct patient checks and document Observation sheet: Q15 minutes Maintain personal safety: every shift Educate patient to report safety concerns to staff, every shift Monitor environment for contraband/sharps Medication safety: Monitor for expected outcome, potential side effects: every shift, Assess barriers to learning: every shift, Assess readiness for medication education: every shift <Karen Kwon - Last Filed: 05/24/18 15:31> Family Contact Family involvement: Family/SO is involved Family contact: Family has been contacted by patient - Goals for Treatment Patient goals for treatment: "I want to go to an outpatient" Discharge/Continuing Care - Education Needs Education Needs: Patient Medication, Patient Diagnosis/Disease Process, Patient Coping Skills, Patient Placement options, Patient Community resources - Discharge Discharge Criteria: Free of Suicidal thoughts, Normal sleep pattern, Ability to care for self, Reduction of target symptoms Discharge to:: Home, With Family - Treatment Team Participation Discussed with Family/SO: No Was Patient/Family/SO present at Treatment Team Meeting: Yes
--- NOTE | 2018-05-22 23:01 | PCM.PSYCH ---
Initial Psychiatric Evaluation - Initial Psychiatric Evaluation Type of Admission: Voluntary Legal Status: Capacity Chief Complaint (in patient's own words): "I have been hearing voices telling me to hurt myself" History of Present Illness and Precipitating Events: Patient reports that she has been having mood swings, and easily irritable, noted to be internally preoccupied with long latency to responses. Patient also noted with disorganized and bizarre behavior with irritable mood a labile affect. Patient is guarded and superficial during the interview, she is refusing Risperdal, Haldol or Abilify for treatment at this time. Patient reports that she came to the hospital due to suicidal ideation to overdose on her medications. Patient has 4 y/o daughter and lives the her mother together with her daughter. Patient reports taking Olanzepine 2 mg at bedtime, which was given to her at [facility] in [address] Patient reports her recently stressor as the recent loss of her grandmother, she denied S/I attempt in the past. Patient presents with depressed, irritable mood and a labile affect. Patient reports using marijuana about a blunt every other day, last day of use was two days ago. She denies any other illicit drug use, she also denies alcohol use. Patient denies any family history of mental illness. She currently denies suicidal ideation/intent/plan. Current Medications: Active Medications Generic Name Dose Route Start Last Admin Trade Name Freq PRN Reason Stop Dose Admin Acetaminophen 650 mg 05/22/18 00:10 Tylenol 325mg Tab PO Q6 PRN Headache Hydroxyzine HCl 25 mg 05/22/18 00:08 05/22/18 13:27 Atarax PO 25 mg Q6H PRN Administration Agitation Influenza Virus Vaccine 60 mcg 05/24/18 01:07 Flucelvax Quad 0974-2519 Syr IM 05/24/18 01:08 .ONCE ONE Lorazepam 1 mg 05/22/18 14:09 05/22/18 14:20 Ativan PO 1 mg Q6H PRN Administration Anxiety Olanzapine 5 mg 05/22/18 14:30 05/22/18 14:35 Zyprexa PO 5 mg DAILY MICHAEL Administration Pneumococcal Polyvalent Vaccine 0.5 ml 05/24/18 01:07 Pneumovax 23 Vaccine IM 05/24/18 01:08 .ONCE ONE Trazodone HCl 50 mg 05/22/18 00:15 05/22/18 00:38 Desyrel PO 50 mg STAT MICHAEL Administration Past Psychiatric History - Past Psychiatric History Prior Professional Help: [facility], [facility] History of ETOH/Drug Use: Denies Pertinent Medical Hx (Current Medical&Sleep Prob, Allergies): Allergies Allergy/AdvReac Type Severity Reaction Status Date / Time crab Allergy Severe SWELLING Verified 05/21/18 20:01 shrimp Allergy Severe SWELLING Verified 05/21/18 20:01 shell fish Allergy ANGIOEDEMA Uncoded 09/11/17 20:05 Arkoe Carbonate [Arkoe Carbonate 300MG] 900 mg PO TID 02/02/17 Abilify Maintena 400 mg IM 09/11/17 LORazepam [Ativan] 1 mg PO HS 09/11/17 Benztropine [Cogentin] 1 mg PO BID #60 tab 09/21/17 Divalproex [Depakote DR] 500 mg PO BID #60 tcp 09/21/17 Gabapentin [Neurontin] 300 mg PO TID #90 cap 09/21/17 OLANZapine [Zyprexa] 10 mg PO BID #60 tab 09/21/17 buPROPion [Wellbutrin] 75 mg PO DAILY #30 tab 09/21/17 traZODone [Desyrel] 100 mg PO HS #30 tab 09/21/17 Review of Systems - Psychiatric Psychiatric: Abnormal Sleep Pattern, Auditory Hallucinations, Depression, Hallucinations, Mood Swings, Suicidal Ideation, Tactile Hallucinations Mental Status Examination - Personal Presentation Personal Presentation: Looks stated age - Affect Affect: Constricted, Flat - Motor Activity Motor Activity: Psychomotor Retardation - Reliability in Providing Information Reliability in Providing Information: Poor, due to alteration in thoughts - Speech Speech: Disorganized, Irrelevant, Tangential - Mood Mood: Depressed, Anxious - Formal Thought Process Formal Thought Process: Hallucinations, Loosening of associations - Obsessions/Compulsions Obsessions: No Compulsions: No - Cognitive Functions Orientation: Person, Place, Situation, Time Sensorium: Alert Attention/Concentration: Easily distracted Abstract Thinking: [place] Estimate of Intelligence: Average Judgement: Imparied, as evidence by: Lack of insight into illness - Risk Risk: Suicidal, Elopement - Strength & Assets Inventory Strength & Assets Inventory: Family support DSM 5 DX - DSM 5 DSM 5 Diagnosis: Bipolar Disorder, Current Episode Mixed, Severe, with Psychotic Features - Recommended/Plan of Treatment Treatment Recommendations and Plan of Treatment: Start Zyprexa 5mg daily As need medications All risks, benefits and alternatives of the meds discussed, and the pt agreed and understood. Attend groups and activities Individual therapy daily Psychoeducation and support daily Encourage compliance with meds and after care Refer to outpatient program Teach healthy lifestyle methods, i.e. diet, exercise, meditation Projected ELOS: TBCristhian
[2018-05-23 21:57] LABS: URINE BILIRUBIN NEGATIVE (NEGATIVE); URINE BLOOD NEGATIVE (NEGATIVE); URINE CLARITY Clear (Clear); URINE COLOR Yellow (YELLOW); URINE GLUCOSE (UA) NORMAL (Normal)
[2018-05-23 21:58] LABS: SQUAMOUS EPITHIAL 4 /hpf (0-5); URINE BACTERIA RARE (<OCC); URINE LEUKOCYTE ESTERASE TRACE Leu/uL (Negative); URINE PROTEIN 1+ mg/dL (NEGATIVE); URINE UROBILINOGEN NORMAL mg/dL (0.2-1.0)
[2018-05-24] MEDS ORDERED: Influenza Vaccine 60 mcg/0.5 mL SYR (4YR UP) IM ONE (01:07)
[2018-05-24] MEDS ORDERED: Pneumococcal 23-Valent Vaccine IM ONE (01:07)
--- NOTE | 2018-05-24 11:37 | PCM.PYCHPN ---
Psychiatric Progress Note - Psychiatric Progress Note Patient seen today, length of contact: 15 min Patient Chief Complaint: denisse Medication Change: Yes Medical Record Reviewed: Yes Mental Status Examination - Cognitive Function Orientation: Person, Place, Situation, Time Memory: Intact Attention: Poor Concentration: Poor Association: Loose Fund of Knowledge: Poor - Mood Mood: Depressed, Anxious - Affect Affect: Constricted - Speech Speech: Soft - Formal Thought Process Formal Thought Process: Hallucinations, Delusions, Paranoia, Loosening of associations - Suicidal Ideation Suicidal Ideation: No - Homicidal Ideation Homicidal Ideation: No Goal/Treatment Plan - Goal/Treatment Plan Need for Continued Stay: Remain at risks for inpatient hospitalization Progress Toward Problem(s) and Goals/Treatment Plan: Bipolar Disorder, Current Episode Mixed, Severe, with Psychotic Features Start Zyprexa 5mg daily As need medications All risks, benefits and alternatives of the meds discussed, and the pt agreed and understood. Attend groups and activities Individual therapy daily Psychoeducation and support daily Encourage compliance with meds and after care Refer to outpatient program Teach healthy lifestyle methods, i.e. diet, exercise, meditation
[2018-05-24] MEDS ORDERED: HYDROmorphone 1 mg/ml ISec ONE (12:04)
[2018-05-25 06:09] VITALS: PULSE 84; RESP 18; TEMP 98.6
--- NOTE | 2018-05-25 09:03 | RAD ---
Date of service: 05/24/2018 HISTORY: involuntary commitment COMPARISON: No prior. TECHNIQUE: 1 view obtained. FINDINGS: LUNGS: No active pulmonary disease. PLEURA: No significant pleural effusion identified, no pneumothorax apparent. CARDIOVASCULAR: No aortic atherosclerotic calcification present. Normal cardiac size. No pulmonary vascular congestion. OSSEOUS STRUCTURES: No significant abnormalities. VISUALIZED UPPER ABDOMEN: Normal. OTHER FINDINGS: None. IMPRESSION: No active disease.
[2018-05-25] MEDS: Divalproex 250 mg DR Tab PO SCH ×2 (11:47→17:13)
[2018-05-25 15:15] VITALS: BP 122/85
--- NOTE | 2018-05-27 23:55 | PCM.PYCHDC ---
Mental Status Examination - Mental Status Examination Orientation: Person, Place, Situation, Time Memory: Intact Mood: Anxious Affect: Blunted Speech: Appropriate Attention: WNL Concentration: WNL Language: Word Retrieval Association: Loose Fund of Knowledge: WNL Formal Thought Process: Hallucinations, Delusions, Paranoia, Loosening of associations Description of patient's judgement and insight: poor Psychotic Thoughts and Behaviors: reports AVH Suicidal Ideation: No Current Homicidal Ideation?: No Discharge Summary - Discharge Note Consultations:: List each consultation separately and include: 1. Reason for request. 2. Findings. 3. Follow-up Summary of Hospital Course include:: 1. Description of specific treatment plan utilized for patients during their course of treatmen. 2. Summarize the time- course for resolution of acute symptoms and/or regressed behaviors. 3. Describe issues identified and worked on during hospitalization. 4. Describe medication utilized. 5. Describe medical problems identified and treated. 6. Reassessment of suicide risk - Final Diagnosis (DSM 5) Condition upon Discharge: GOOD Disposition: DISCHARGE TO PSYCH HOSPITAL Follow-up Treatment Plan: Bipolar Disorder, Current Episode Mixed, Severe, with Psychotic Features Start Zyprexa 5mg daily As need medications All risks, benefits and alternatives of the meds discussed, and the pt agreed and understood. Attend groups and activities Individual therapy daily Psychoeducation and support daily Encourage compliance with meds and after care Refer to outpatient program Teach healthy lifestyle methods, i.e. diet, exercise, meditation
== END 2018-05-25 18:14 | disposition home or self-care (01) | DRG 430 ==
LOC: C.ER 19:50 → C.5E 21:54
PROVIDERS: ADMIT Psychiatry & Neurology Psychiatry; ATTEND Psychiatry & Neurology Psychiatry
DX: F31.64 Bipolar disorder, current episode mixed, severe, with psychotic features (principal); R45.851 Suicidal ideations; J45.909 Unspecified asthma, uncomplicated; F41.9 Anxiety disorder, unspecified